=== PATIENT | female | born 1935 | race Caucasian/White ===

== ENCOUNTER 2019-09-03 03:49 | Emergency (ER) | payer OTHER, MEDICARE ==
[2019-09-03] MEDS ORDERED: Adenosine 6 MG/2 ML SDV IVPUSH STA (04:00)
[2019-09-03] MEDS ORDERED: Adenosine 6 MG/2 ML SDV ONE (04:04)
[2019-09-03] MEDS ORDERED: Adenosine 12 MG/4 ML SDV ONE (04:04)
--- NOTE | 2019-09-03 04:49 | EDM.PDOC ---
ED HPI GENERAL MEDICAL PROBLEM - General Chief Complaint: Cardiovascular Problem Stated Complaint: SOB FAST HEART RATE Time Seen by Provider: 09/03/19 03:52 - History of Present Illness INITIAL COMMENTS - FREE TEXT/NARRATIVE: 84-year-old female presents the emergency room with a rapid heart rate some mild shortness of breath. Darted roughly around 2:00 this morning she thought it would get better but it did not so she came in to have this looked at. She is talking in sentences is not complaining of any chest pain but does have palpitations. She has done this in the past. Denies any other complaints at this time. The patient does not have a significant cough has not had any recent illnesses. After cardioversion however she does complain of being a little hungry. Middle Chest Pain Score (Numeric/FACES): 3 - Related Data Allergies Allergy/AdvReac Type Severity Reaction Status Date / Time No Known Allergies Allergy Verified 09/03/19 03:59 Home Meds: Home Meds Acetaminophen 650 mg PO BID 11/16/18 [History] Acetaminophen 650 mg PO Q4H PRN 11/16/18 [History] Albuterol [Ventolin HFA] 2 puff INH Q4H PRN 11/16/18 [History] Aspirin [Ecotrin EC] 81 mg PO DAILY 11/16/18 [History] Calcium Carbonate [Calcium] 500 mg PO Q6H PRN 11/16/18 [History] Calcium Carbonate/Vitamin D3 [Calcium 600-Vit D3 400 Tablet] 1 tab PO BID [History] Insulin Glargine,Hum.Rec.Anlog [[place] U-100] 43 units SUBCUT BID 12/27 [History] Magnesium Oxide 400 mg PO QID 11/16/18 [History] Pantoprazole Sodium [Protonix] 20 mg PO ACBREAKFAST 11/16/18 [History] Potassium Chloride 10 meq PO BEDTIME 11/16/18 [History] atorvaSTATin [Lipitor] 20 mg PO BEDTIME 11/16/18 [History] lisinopriL [Lisinopril] 5 mg PO DAILY 11/16/18 [History] Allopurinol [Zyloprim] 100 mg PO DAILY 09/03/19 [History] Insulin Lispro [Admelog] 15 unit SUBCUT TID 09/03/19 [History] Loperamide [Imodium] 2 mg PO TID PRN 09/03/19 [History] Nitroglycerin 0.4 mg SL ASDIRECTED PRN 09/03/19 [History] Torsemide 20 mg PO BID 09/03/19 [History] Trolamine Salicylate/Aloe Vera [Aspercreme 10% Cream] 1 applic TOP QID 09/03/19 [History] Past Medical History Cardiovascular History: Reports: Blood Clots/VTE/DVT, Heart Failure, High Cholesterol, Other (See Below) Other Cardiovascular History: artificial aorta Respiratory History: Reports: COPD Gastrointestinal History: Reports: Chronic Constipation, GERD, Hiatal Hernia Genitourinary History: Reports: Chronic Renal Insuffiency, Urinary Incontinence Musculoskeletal History: Reports: Osteoporosis Hematologic History: Reports: Anemia, B12 Deficiency - Past Surgical History HEENT Surgical History: Reports: Cataract Surgery Social & Family History - Tobacco Use Smoking Status *Q: Never Smoker Second Hand Smoke Exposure: No - Caffeine Use Caffeine Use: Reports: None - Recreational Drug Use Recreational Drug Use: No ED ROS GENERAL - Review of Systems Review Of Systems: See Below HEENT: Reports: No Symptoms Respiratory: Reports: Shortness of Breath Cardiovascular: Reports: Lightheadedness, Palpitations. Denies: Chest Pain, Edema, Syncope GI/Abdominal: Reports: No Symptoms : Reports: No Symptoms Musculoskeletal: Reports: Other (Routine aches and pains of been an 84 years old she states) Neurological: Reports: No Symptoms Psychiatric: Reports: No Symptoms ED EXAM, GENERAL - Physical Exam Exam: See Below Exam Limited By: No Limitations General Appearance: Alert, No Apparent Distress, Obese, Other (Patient is doing pretty well on presentation however her pulse rate was in the 150s) Head: Atraumatic, Normocephalic Neck: Normal Inspection, Supple, Non-Tender, Full Range of Motion, Other Respiratory/Chest: No Respiratory Distress (JVD), Lungs Clear, Normal Breath Sounds Cardiovascular: No Edema, No Murmur, No Rub, Tachycardia, Other (After cardioversion she had normal heart sounds) GI/Abdominal: Normal Bowel Sounds, Soft, Non-Tender, Other (Significant obesity) Back Exam: Normal Inspection. No: CVA Tenderness (L), CVA Tenderness (R) Extremities: Normal Inspection, No Pedal Edema Neurological: Alert, Oriented, Normal Cognition EKG INTERPRETATION EKG Date: 09/03/19 Rhythm: Other (Ventricular tachycardia) [place]: Normal ST-T: Other (Mild ST depression in the limb leads and precordial leads) QT: Normal EKG Interpretation Comments: EKG done after cardioversion is probably sinus with a rate of 94 but there is some baseline artifact and it is difficult to be certain also has a single PVC [place] is normal. #3 EKG shows a sinus rhythm fairly normal EKG no evidence of ischemia Course - Vital Signs Last Recorded V/S: Last Vital Signs Temp 36.6 C 09/03/19 03:56 Pulse 76 09/03/19 04:23 Resp 16 09/03/19 04:23 BP 119/47 L 09/03/19 04:23 Pulse Ox 97 09/03/19 04:23 - Orders/Labs/Meds Orders: Active Orders 24 hr Category Date Time Status EKG 12 Lead [EKG Documentation Completion] [RC] STAT Care 09/03/19 04:26 Active EKG 12 Lead [EKG Documentation Completion] [RC] STAT Care 09/03/19 04:26 Active EKG Documentation Completion [RC] STAT Care 09/03/19 04:16 Inactive Chest 1V Frontal [CR] Stat Exams 09/03/19 04:16 Ordered Labs: Laboratory Tests 09/03/19 09/03/19 09/03/19 Range/Units 04:15 04:15 04:15 WBC 12.96 H (3.98-10.04) K/mm3 RBC 3.42 L (3.98-5.22) M/mm3 Hgb 11.1 L (11.2-15.7) gm/dl Hct 36.6 (34.1-44.9) % MCV 107.0 H D (79.4-94.8) fl MCH 32.5 H (25.6-32.2) pg MCHC 30.3 L (32.2-35.5) g/dl RDW Std Deviation 56.8 H (36.4-46.3) fL Plt Count 274 (182-369) K/mm3 MPV 11.5 (9.4-12.3) fl Neut % (Auto) 58.1 (34.0-71.1) % Lymph % (Auto) 29.3 (19.3-51.7) % [place] % (Auto) 7.2 (4.7-12.5) % Eos % (Auto) 4.3 (0.7-5.8) Baso % (Auto) 0.6 (0.1-1.2) % Neut # (Auto) 7.52 H (1.56-6.13) K/mm3 Lymph # (Auto) 3.80 H (1.18-3.74) K/mm3 [place] # (Auto) 0.93 H (0.24-0.36) K/mm3 Eos # (Auto) 0.56 H (0.04-0.36) K/mm3 Baso # (Auto) 0.08 (0.01-0.08) K/mm3 Manual Slide Review Abnormal smear PT 10.1 (9.7-12.0) SECONDS INR < 0.93 APTT 23 (22-31) SECONDS Sodium 141 (136-145) mEq/L Potassium 4.6 (3.5-5.1) mEq/L Chloride 106 (98-107) mEq/L Carbon Dioxide 22 (21-32) mEq/L Anion Gap 17.6 H (5-15) BUN 52 H (7-18) mg/dL Creatinine 2.9 H (0.55-1.02) mg/dL Est Cr Clr Drug Dosing 11.83 mL/min Estimated GFR (MDRD) 16 (>60) mL/min BUN/Creatinine Ratio 17.9 (14-18) Glucose 184 H (83-115) mg/dL Calcium 8.4 L (8.5-10.1) mg/dL Total Bilirubin 0.2 (0.2-1.0) mg/dL AST 13 L (15-37) U/L ALT 18 (14-59) U/L Alkaline Phosphatase 91 (46-116) U/L Troponin I 0.031 (0.00-0.056) ng/mL Total Protein 6.9 (6.4-8.2) g/dl Albumin 3.1 L (3.4-5.0) g/dl Globulin 3.8 gm/dL Albumin/Globulin Ratio 0.8 L (1-2) Meds: Medications Discontinued Medications Generic Name Dose Route Start Last Admin Trade Name Freq PRN Reason Stop Dose Admin Adenosine Confirm 09/03/19 04:04 09/03/19 04:23 Adenocard Administered 09/03/19 04:05 Not Given Dose 6 mg .ROUTE .STK-MED ONE Adenosine Confirm 09/03/19 04:04 09/03/19 04:23 Adenocard Administered 09/03/19 04:05 Not Given Dose 12 mg .ROUTE .STK-MED ONE Adenosine 6 mg 09/03/19 04:00 09/03/19 04:06 Adenocard IVPUSH 09/03/19 04:01 6 mg NOW STA Administration - Re-Assessments/Exams Free Text/Narrative Re-Assessment/Exam: 09/03/19 04:52 Patient was placed in emergency room suite, IV access obtained labs obtained EKG obtained EKG consistent with SVT rate of 150. She was administered 6 mg of adenosine and converted to sinus this started in the 80s went back up into the low 100s and settled back down into the 70s. The patient felt better with a little shortness of breath she had had resolved. The patient was a little uncomfortable during the adenosine cardioversion. However this was short-lived. 09/03/19 05:38 Chest x-ray shows some age-related changes evidence of coronary revascularization and aortic stent. Labs troponin is in the normal range. I am concerned about her renal function patient states that her creatinine at 2.9 is lower than it was last time they checked it. She sees her photo producer on a regular basis and is scheduled to see the photo producer on 24 September. Did inform her that when she was last here in November of this last year her creatinine was 1.9. Patient is continued to do well and she is requesting to go home at this time. Departure - Departure Time of Disposition: 05:40 Disposition: Home, Self-Care 01 Clinical Impression: Supraventricular tachycardia, Renal insufficiency Referrals: Walter Sahu MD [Primary Care Provider] - Forms: ED Department Discharge Additional Instructions: Return to the emergency room with any questions problems or worsening symptoms. Follow-up with your photo producer, or kidney doctor, as scheduled. Follow-up with your heart doctor to discuss this rapid heart rate Sepsis Event Note - Evaluation Sepsis Screening Result: No Definite Risk - Focused Exam Vital Signs: Vital Signs Temp Pulse Resp BP Pulse Ox 09/03/19 04:23 76 16 119/47 L 97 09/03/19 03:56 36.6 C 153 H 20 93/69 96 Date Exam was Performed: 09/03/19 Time Exam was Performed: 05:38 - My Orders Last 24 Hours: My Active Orders 09/03/19 04:16 EKG Documentation Completion [RC] STAT Chest 1V Frontal [CR] Stat 09/03/19 04:26 EKG 12 Lead [EKG Documentation Completion] [RC] STAT EKG 12 Lead [EKG Documentation Completion] [RC] STAT - Assessment/Plan Last 24 Hours: My Active Orders 09/03/19 04:16 EKG Documentation Completion [RC] STAT Chest 1V Frontal [CR] Stat 09/03/19 04:26 EKG 12 Lead [EKG Documentation Completion] [RC] STAT EKG 12 Lead [EKG Documentation Completion] [RC] STAT
--- NOTE | 2019-09-03 07:22 | CR ---
Chest: Portable view of the chest was obtained. Comparison: Prior chest x-ray of 11/16/18. Aortic stent is noted. Heart size and mediastinum are within normal limits for age. Lungs are clear with no acute parenchymal change. Bony structures are unremarkable. Impression: 1. Nothing acute is appreciated. Diagnostic code #2 This report was dictated in MDT
== END 2019-09-03 06:10 | disposition home or self-care (01) ==
LOC: JD.ED 03:49
DX: I47.1 Supraventricular tachycardia (principal); N28.9 Disorder of kidney and ureter, unspecified; I50.9 Heart failure, unspecified; E78.00 Pure hypercholesterolemia, unspecified; J44.9 Chronic obstructive pulmonary disease, unspecified; K21.9 Gastro-esophageal reflux disease without esophagitis; Z79.82 Long term (current) use of aspirin; Z79.899 Other long term (current) drug therapy; Z79.4 Long term (current) use of insulin
CPT/HCPCS: 36415; 71045; 80053; 84484; 85025; 85610; 85730; 93005; 96374; 99285; J0153

== ENCOUNTER 2020-04-27 17:28 | Emergency (ER) | payer MEDICARE, OTHER ==
[2020-04-27] MEDS ORDERED: Sodium Chloride 0.9% 10 ML Syringe FLUSH PRN (17:38)
--- NOTE | 2020-04-27 18:08 | EDM.PDOC ---
ED HPI GENERAL MEDICAL PROBLEM - General Chief Complaint: Cardiovascular Problem Stated Complaint: [facility] Time Seen by Provider: 04/27/20 17:32 Source of Information: Reports: Patient, RN Notes Reviewed History Limitations: Reports: No Limitations - History of Present Illness INITIAL COMMENTS - FREE TEXT/NARRATIVE: Patient is an 85-year-old female presenting to the emergency department after having an episode of dizziness, weakness, and palpitations at home. She states that she was dicing potatoes, and when she stood up the symptoms began. She describes a sensation of her heart racing accompanied by dizziness and weakness. She does have a history of SVT and states this felt similar to her previous episodes. She estimates the symptoms lasted approximately 1 hour. The DIRECTOR OF AGRONOMY called the [facility] nurse who came to evaluate the patient and called the ambulance. The episode resolved shortly after the ambulance arrived. She states that she occasionally feels some palpitations now and does not feel quite right but denies any dizziness or weakness. She has had no fever, chills, nausea, or vomiting. She does have chronic diarrhea. Denies any chest pain now or at the time of the episode but states at the time of the episode, she did feel short of breath. She denies shortness of breath at this time. - Related Data Allergies Allergy/AdvReac Type Severity Reaction Status Date / Time No Known Allergies Allergy Verified 04/27/20 17:36 Home Meds: Home Meds Acetaminophen 650 mg PO BID 11/16/18 [History] Acetaminophen 650 mg PO Q4H PRN 11/16/18 [History] Albuterol [Ventolin HFA] 2 puff INH Q4H PRN 11/16/18 [History] Aspirin [Ecotrin EC] 81 mg PO DAILY 11/16/18 [History] Calcium Carbonate [Calcium] 500 - 1,000 mg PO Q6H PRN 11/16/18 [History] Calcium Carbonate/Vitamin D3 [Calcium 600-Vit D3 400 Tablet] 1 tab PO BID 11/16/18 [History] Insulin Glargine,Hum.Rec.Anlog [Basaglar Kwikpen U-100] 25 units SUBCUT BID 11/16/18 [History] Magnesium Oxide 400 mg PO TID 11/16/18 [History] Pantoprazole Sodium [Protonix] 20 mg PO Q48H 11/16/18 [History] atorvaSTATin [Lipitor] 20 mg PO BEDTIME 11/16/18 [History] lisinopriL [Lisinopril] 5 mg PO DAILY 11/16/18 [History] Allopurinol [Zyloprim] 100 mg PO DAILY 09/03/19 [History] Insulin Lispro [Admelog] 10 unit SUBCUT TID 09/03/19 [History] Loperamide [Imodium] 2 mg PO TID PRN 09/03/19 [History] Nitroglycerin 0.4 mg SL ASDIRECTED PRN 09/03/19 [History] Torsemide 40 mg PO DAILY 09/03/19 [History] Trolamine Salicylate/Aloe Vera [Aspercreme 10% Cream] 1 applic TOP QID PRN 09/03/19 [History] Iodine/Isopropyl Alcohol [Iodine Tincture 1%-70% [place]] 1 applic TOP QID PRN 04/27/20 [History] Latanoprost 1 drop EYEBOTH BEDTIME 04/27/20 [History] Metoprolol Succinate 50 mg PO DAILY 04/27/20 [History] Montelukast [Singulair] 10 mg PO BEDTIME PRN 04/27/20 [History] Ondansetron [Zofran ODT] 4 mg SL Q6H PRN 04/27/20 [History] Semaglutide [Ozempic] 1 injection SUBCUT WEEKLY 04/27/20 [History] Torsemide 20 mg PO DAILY PRN 04/27/20 [History] Vit A/Vit C/Vit E/Zinc/Copper [Preservision] 1 tab PO BID 04/27/20 [History] calcitrioL [Calcitriol] 2 tab PO MOFR 04/27/20 [History] Past Medical History Cardiovascular History: Reports: Blood Clots/VTE/DVT, Heart Failure, High Cholesterol, Other (See Below) Other Cardiovascular History: artificial aorta Respiratory History: Reports: COPD Gastrointestinal History: Reports: Chronic Constipation, GERD, Hiatal Hernia Genitourinary History: Reports: Chronic Renal Insuffiency, Urinary Incontinence Musculoskeletal History: Reports: Osteoporosis Hematologic History: Reports: Anemia, B12 Deficiency - Past Surgical History HEENT Surgical History: Reports: Cataract Surgery Social & Family History - Tobacco Use Tobacco Use Status *Q: Former Tobacco User Used Tobacco, but Quit: Yes Month/Year Tobacco Last Used: 3 years - Caffeine Use Caffeine Use: Reports: None - Recreational Drug Use Recreational Drug Use: No ED ROS GENERAL - Review of Systems Review Of Systems: See Below Constitutional: Reports: No Symptoms. Denies: Fever, Chills HEENT: Reports: No Symptoms Respiratory: Reports: Shortness of Breath. Denies: Cough Cardiovascular: Reports: Lightheadedness, Palpitations. Denies: Chest Pain Endocrine: Reports: Fatigue GI/Abdominal: Reports: Diarrhea. Denies: Abdominal Pain, Nausea, Vomiting : Reports: No Symptoms. Denies: Dysuria Musculoskeletal: Reports: No Symptoms Skin: Reports: No Symptoms Neurological: Reports: No Symptoms Psychiatric: Reports: No Symptoms Hematologic/Lymphatic: Reports: No Symptoms Immunologic: Reports: No Symptoms ED EXAM, GENERAL - Physical Exam Exam: See Below Exam Limited By: No Limitations General Appearance: Alert, WD/WN, No Apparent Distress Respiratory/Chest: No Respiratory Distress, Lungs Clear, Normal Breath Sounds, No Accessory Muscle Use, Chest Non-Tender Cardiovascular: Normal Peripheral Pulses, Regular Rate, Rhythm, No Edema, No Gallop, No JVD, No Murmur, No Rub GI/Abdominal: Normal Bowel Sounds, Soft, Non-Tender, No Organomegaly, No Distention, No Abnormal Bruit, No Mass Neurological: Alert, Oriented, CN II-XII Intact, Normal Cognition, Normal Gait, Normal Reflexes, No Motor/Sensory Deficits Psychiatric: Normal Affect, Normal Mood Skin Exam: Warm, Dry, Intact, Normal Color, No Rash Course - Vital Signs Last Recorded V/S: Last Vital Signs Temp 97.6 F 04/27/20 17:34 Pulse 73 04/27/20 17:34 Resp 18 04/27/20 17:34 BP 119/53 L 04/27/20 17:34 Pulse Ox 100 04/27/20 17:34 Orthostatic Blood Pressure [ 92/52 Standing] Orthostatic Blood Pressure [ 113/57 Sitting] Orthostatic Blood Pressure [ 93/51 Supine] - Orders/Labs/Meds Orders: Active Orders 24 hr Category Date Time Status EKG Documentation Completion [RC] STAT Care 04/27/20 17:38 Active Holter Monitor 48 Hours [RC] .PRN Care 04/27/20 19:31 Active Orthostatic Vital Signs [RC] ASDIRECTED Care 04/27/20 17:38 Active Peripheral IV Care [RC] . DIRECTED Care 04/27/20 17:39 Active Chest 1V Frontal [CR] Stat Exams 04/27/20 17:55 Taken Sodium Chloride 0.9% [Saline Flush] Med 04/27/20 17:38 Active 10 ml FLUSH ASDIRECTED PRN Peripheral IV Insertion Adult [OM.PC] Stat Oth 04/27/20 17:38 Ordered Medication Orders Sodium Chloride (Saline Flush) 10 ml FLUSH ASDIRECTED PRN PRN Reason: Keep Vein Open Last Admin: 04/27/20 18:11 Dose: 10 ml Documented by: RASHMI Labs: Laboratory Tests 04/27/20 04/27/20 04/27/20 Range/Units 17:50 17:50 17:50 WBC 11.61 H (3.98-10.04) K/mm3 RBC 3.63 L (3.98-5.22) M/mm3 Hgb 11.5 (11.2-15.7) gm/dl Hct 37.5 (34.1-44.9) % MCV 103.3 H D (79.4-94.8) fl MCH 31.7 (25.6-32.2) pg MCHC 30.7 L (32.2-35.5) g/dl RDW Std Deviation 57.9 H (36.4-46.3) fL Plt Count 289 (182-369) K/mm3 MPV 10.6 (9.4-12.3) fl Neut % (Auto) 64.9 (34.0-71.1) % Lymph % (Auto) 23.6 (19.3-51.7) % [place] % (Auto) 7.7 (4.7-12.5) % Eos % (Auto) 2.7 (0.7-5.8) Baso % (Auto) 0.5 (0.1-1.2) % Neut # (Auto) 7.54 H (1.56-6.13) K/mm3 Lymph # (Auto) 2.74 (1.18-3.74) K/mm3 [place] # (Auto) 0.89 H (0.24-0.36) K/mm3 Eos # (Auto) 0.31 (0.04-0.36) K/mm3 Baso # (Auto) 0.06 (0.01-0.08) K/mm3 Manual Slide Review Abnormal smear Sodium 145 (136-145) mEq/L Potassium 4.2 (3.5-5.1) mEq/L Chloride 106 (98-107) mEq/L Carbon Dioxide 27 (21-32) mEq/L Anion Gap 16.2 H (5-15) BUN 36 H (7-18) mg/dL Creatinine 2.1 H (0.55-1.02) mg/dL Est Cr Clr Drug Dosing 16.05 mL/min Estimated GFR (MDRD) 22 (>60) mL/min BUN/Creatinine Ratio 17.1 (14-18) Glucose 162 H (83-115) mg/dL Calcium 9.6 (8.5-10.1) mg/dL Magnesium (1.8-2.4) mg/dl Total Bilirubin 0.4 (0.2-1.0) mg/dL AST 14 L (15-37) U/L ALT 16 (14-59) U/L Alkaline Phosphatase 93 (46-116) U/L Troponin I 0.056 (0.00-0.056) ng/mL NT-Pro-B Natriuret Pep 864 H (0-450) pg/mL Total Protein 7.1 (6.4-8.2) g/dl Albumin 3.2 L (3.4-5.0) g/dl Globulin 3.9 gm/dL Albumin/Globulin Ratio 0.8 L (1-2) TSH 3rd Generation (0.358-3.74) uIU/mL Urine Color (Yellow) Urine Appearance (Clear) Urine pH (5.0-8.0) Ur Specific [place] (1.005-1.030) Urine Protein (Negative) Urine Glucose (UA) (Negative) Urine Ketones (Negative) Urine Occult Blood (Negative) Urine Nitrite (Negative) Urine Bilirubin (Negative) Urine Urobilinogen (0.2-1.0) Ur Leukocyte Esterase (Negative) Urine RBC (0-5) /hpf Urine WBC (0-5) /hpf Ur Squamous Epith Cells (0-5) /hpf Urine Bacteria (FEW) /hpf Urine Mucus (FEW) /hpf 04/27/20 04/27/20 04/27/20 Range/Units 17:50 17:50 18:40 WBC (3.98-10.04) K/mm3 RBC (3.98-5.22) M/mm3 Hgb (11.2-15.7) gm/dl Hct (34.1-44.9) % MCV (79.4-94.8) fl MCH (25.6-32.2) pg MCHC (32.2-35.5) g/dl RDW Std Deviation (36.4-46.3) fL Plt Count (182-369) K/mm3 MPV (9.4-12.3) fl Neut % (Auto) (34.0-71.1) % Lymph % (Auto) (19.3-51.7) % [place] % (Auto) (4.7-12.5) % Eos % (Auto) (0.7-5.8) Baso % (Auto) (0.1-1.2) % Neut # (Auto) (1.56-6.13) K/mm3 Lymph # (Auto) (1.18-3.74) K/mm3 [place] # (Auto) (0.24-0.36) K/mm3 Eos # (Auto) (0.04-0.36) K/mm3 Baso # (Auto) (0.01-0.08) K/mm3 Manual Slide Review Sodium (136-145) mEq/L Potassium (3.5-5.1) mEq/L Chloride (98-107) mEq/L Carbon Dioxide (21-32) mEq/L Anion Gap (5-15) BUN (7-18) mg/dL Creatinine (0.55-1.02) mg/dL Est Cr Clr Drug Dosing mL/min Estimated GFR (MDRD) (>60) mL/min BUN/Creatinine Ratio (14-18) Glucose (83-115) mg/dL Calcium (8.5-10.1) mg/dL Magnesium 2.0 (1.8-2.4) mg/dl Total Bilirubin (0.2-1.0) mg/dL AST (15-37) U/L ALT (14-59) U/L Alkaline Phosphatase (46-116) U/L Troponin I (0.00-0.056) ng/mL NT-Pro-B Natriuret Pep (0-450) pg/mL Total Protein (6.4-8.2) g/dl Albumin (3.4-5.0) g/dl Globulin gm/dL Albumin/Globulin Ratio (1-2) TSH 3rd Generation 2.379 (0.358-3.74) uIU/mL Urine Color Yellow (Yellow) Urine Appearance Clear (Clear) Urine pH 6.5 (5.0-8.0) Ur Specific [place] 1.020 (1.005-1.030) Urine Protein 1+ H (Negative) Urine Glucose (UA) Negative (Negative) Urine Ketones Negative (Negative) Urine Occult Blood Negative (Negative) Urine Nitrite Negative (Negative) Urine Bilirubin Negative (Negative) Urine Urobilinogen 0.2 (0.2-1.0) Ur Leukocyte Esterase Negative (Negative) Urine RBC Not seen (0-5) /hpf Urine WBC 0-5 (0-5) /hpf Ur Squamous Epith Cells 30-40 H (0-5) /hpf Urine Bacteria Few (FEW) /hpf Urine Mucus Not seen (FEW) /hpf Meds: Medications Generic Name Dose Route Start Last Admin Trade Name Freq PRN Reason Stop Dose Admin Sodium Chloride 10 ml 04/27/20 17:38 04/27/20 18:11 Saline Flush FLUSH 10 ml ASDIRECTED PRN Administration Keep Vein Open Discontinued Medications Generic Name Dose Route Start Last Admin Trade Name Freq PRN Reason Stop Dose Admin Sodium Chloride 500 mls @ 999 mls/hr 04/27/20 18:52 04/27/20 18:59 Normal Saline IV 04/27/20 19:22 999 mls/hr NOW STA Administration - Re-Assessments/Exams Free Text/Narrative Re-Assessment/Exam: 04/27/20 18:48 Phone call recieved from [facility] nurse. She states that at the time of the episode, patient's heart rate was going in the 170s. His further supports the suspicion that she had a run of SVT. Patient was able to get up and use the bathroom without difficulty. Awaiting results of hematology. Orthostatic vital signs were completed and she was not found to be mildly orthostatic. Increased from 67 supine to 87 standing. Blood pressure remained stable at 93/51 supine and 92/52 standing. BNP is minimally elevated at 864. Chest x-ray is overall normal. Have ordered a 500 mill bolus of normal saline to be given. 04/27/20 19:00 Hematology was significant for a WBC minimally elevated 11.61, anion gap 16.2, BUN 36, creatinine 2.1, proBNP 864. Troponin the high end of normal at 0.056. Discussed this with Dr. Clark. Given her lack of chest pain and episode of likely SVT, this not concerning. Urinalysis was negative for infection. TSH is normal. I will reassess patient after the 500 mill bolus of normal saline has infused. 04/27/20 19:38 Pts blood pressure has increased to 122/51 after the 500 mill bolus. She has had no recurrence of SVT or palpitations. Have ordered for a 48-hour Holter monitor. Discussed return precautions. Discharge instructions as documented. Departure - Departure Time of Disposition: 19:39 Disposition: Home, Self-Care 01 Condition: Good Clinical Impression: Palpitations, Dizziness Instructions: Palpitations, Dizziness, [id number] Referrals: Rick Ramirez MD [Ordering Only Provider] - Forms: ED Department Discharge Additional Instructions: You were seen in the emergency department today for an episode of rapid heart rate, palpitations, dizziness, and weakness. Work-up included blood work, an EKG, chest x-ray, and urinalysis. The results of your work-up were found to be overall normal with the exception of your kidney function being decreased which is your baseline. Based on your description and the report from the nurse, it is likely that you experienced a recurrence of SVT, however it resolved on its own. You have been sent home on a 48-hour Holter monitor. Follow the instructions as given by the respiratory therapist. If you should experience any recurrence of symptoms or any other symptoms such as chest pain or shortness of breath, return to the emergency department. Recommend follow-up with your court orderly or primary care provider in approximately 1 week. Sepsis Event Note (ED) - Evaluation Sepsis Screening Result: No Definite Risk - Focused Exam Vital Signs: Vital Signs Temp Pulse Resp BP Pulse Ox 04/27/20 17:34 97.6 F 73 18 119/53 L 100 - My Orders Last 24 Hours: My Active Orders 04/27/20 17:38 EKG Documentation Completion [RC] STAT Orthostatic Vital Signs [RC] ASDIRECTED Sodium Chloride 0.9% [Saline Flush] 10 ml FLUSH ASDIRECTED PRN Peripheral IV Insertion Adult [OM.PC] Stat 04/27/20 17:39 Peripheral IV Care [RC] . DIRECTED 04/27/20 17:55 Chest 1V Frontal [CR] Stat 04/27/20 19:31 Holter Monitor 48 Hours [RC] .PRN - Assessment/Plan Last 24 Hours: My Active Orders 04/27/20 17:38 EKG Documentation Completion [RC] STAT Orthostatic Vital Signs [RC] ASDIRECTED Sodium Chloride 0.9% [Saline Flush] 10 ml FLUSH ASDIRECTED PRN Peripheral IV Insertion Adult [OM.PC] Stat 04/27/20 17:39 Peripheral IV Care [RC] . DIRECTED 04/27/20 17:55 Chest 1V Frontal [CR] Stat 04/27/20 19:31 Holter Monitor 48 Hours [RC] .PRN
[2020-04-27] MEDS ORDERED: Sodium Chloride 0.9% 500 ML IV STA (18:52)
--- NOTE | 2020-04-28 08:24 | CR ---
Chest: Portable view of the chest was obtained. Comparison: Prior chest x-ray 09/03/19. Heart size and mediastinum are normal. Aortic stent is noted. Lungs are clear with no acute parenchymal change. No gross bony abnormality is appreciated. Impression: 1. Findings as noted above. 2. Nothing acute is appreciated. Diagnostic code #2
== END 2020-04-27 20:32 | disposition home or self-care (01) ==
LOC: JD.ED 17:28
DX: R42 Dizziness and giddiness (principal); R00.2 Palpitations; R53.1 Weakness; I13.0 Hypertensive heart and chronic kidney disease with heart failure and stage 1 through stage 4 chronic kidney disease, or unspecified chronic kidney disease; I50.9 Heart failure, unspecified; N18.9 Chronic kidney disease, unspecified; J44.9 Chronic obstructive pulmonary disease, unspecified; E78.00 Pure hypercholesterolemia, unspecified; K21.9 Gastro-esophageal reflux disease without esophagitis; Z72.0 Tobacco use; Z79.82 Long term (current) use of aspirin; Z79.899 Other long term (current) drug therapy
CPT/HCPCS: 36415; 71045; 80053; 81001; 83735; 83880; 84443; 84484; 85025; 93005; 93225; 93226; 99285; J7030; 93010; 99284

== ENCOUNTER 2020-05-02 02:36 | Inpatient (IN) | payer MEDICARE, OTHER ==
--- NOTE | 2020-05-02 02:49 | EDM.PDOC ---
ED HPI GENERAL MEDICAL PROBLEM - General Chief Complaint: Chest Pain Stated Complaint: [facility] Time Seen by Provider: 05/02/20 02:44 Source of Information: Reports: Patient History Limitations: Reports: No Limitations - History of Present Illness INITIAL COMMENTS - FREE TEXT/NARRATIVE: This is an 85-year-old female. This morning she developed some sharp pain in her left chest area underneath her left breast that radiated around into her scapula. She called the pace nurse who when she arrived noted to pulse of 150 and gave her a single nitroglycerin that seemed to stop the pain. The ambulance was called and they went and picked her up. When she arrives to the ER she does not appear to be in distress. She does state that when the pain occurred he was very sharp and it seemed to make her short of breath but she was not sweating. The pain did not go into her jaw or down her left arm. She does have a history of an artificial aortic valve as well as 1 stent. She is an insulin-dependent diabetic with neuropathy and retinopathy and also chronic kidney disease. She also has a history of esophageal reflux. She states she feels okay. She did just have a Holter monitor taken off last Monday because she has been having episodes of a fast rate and then a slow rate. She does not have the results of the Holter monitor yet. - Related Data Allergies Allergy/AdvReac Type Severity Reaction Status Date / Time No Known Allergies Allergy Verified 04/27/20 17:36 Home Meds: Home Meds Acetaminophen 650 mg PO BID 11/16/18 [History] Acetaminophen 650 mg PO Q4H PRN 11/16/18 [History] Albuterol [Ventolin HFA] 2 puff INH Q4H PRN 11/16/18 [History] Aspirin [Ecotrin EC] 81 mg PO DAILY 11/16/18 [History] Calcium Carbonate [Calcium] 500 - 1,000 mg PO Q6H PRN 11/16/18 [History] Calcium Carbonate/Vitamin D3 [Calcium 600-Vit D3 400 Tablet] 1 tab PO BID 11/16/18 [History] Insulin Glargine,Hum.Rec.Anlog [Basaglar Kwikpen U-100] 25 units SUBCUT BID 11/16/18 [History] Magnesium Oxide 400 mg PO TID 11/16/18 [History] Pantoprazole Sodium [Protonix] 20 mg PO Q48H 11/16/18 [History] atorvaSTATin [Lipitor] 20 mg PO BEDTIME 11/16/18 [History] lisinopriL [Lisinopril] 5 mg PO DAILY 11/16/18 [History] Allopurinol [Zyloprim] 100 mg PO DAILY 09/03/19 [History] Insulin Lispro [Admelog] 10 unit SUBCUT TID 09/03/19 [History] Loperamide [Imodium] 2 mg PO TID PRN 09/03/19 [History] Nitroglycerin 0.4 mg SL ASDIRECTED PRN 09/03/19 [History] Torsemide 40 mg PO DAILY 09/03/19 [History] Trolamine Salicylate/Aloe Vera [Aspercreme 10% Cream] 1 applic TOP QID PRN 09/03/19 [History] Iodine/Isopropyl Alcohol [Iodine Tincture 1%-70% Amber] 1 applic TOP QID PRN 04/27/20 [History] Latanoprost 1 drop EYEBOTH BEDTIME 04/27/20 [History] Metoprolol Succinate 50 mg PO DAILY 04/27/20 [History] Montelukast [Singulair] 10 mg PO BEDTIME PRN 04/27/20 [History] Ondansetron [Zofran ODT] 4 mg SL Q6H PRN 04/27/20 [History] Semaglutide [Ozempic] 1 injection SUBCUT WEEKLY 04/27/20 [History] Torsemide 20 mg PO DAILY PRN 04/27/20 [History] Vit A/Vit C/Vit E/Zinc/Copper [Preservision] 1 tab PO BID 04/27/20 [History] calcitrioL [Calcitriol] 2 tab PO MOFR 04/27/20 [History] Past Medical History Cardiovascular History: Reports: Blood Clots/VTE/DVT, Heart Failure, High Cholesterol, Other (See Below) Other Cardiovascular History: artificial aorta Respiratory History: Reports: COPD Gastrointestinal History: Reports: Chronic Constipation, GERD, Hiatal Hernia Genitourinary History: Reports: Chronic Renal Insuffiency, Urinary Incontinence Musculoskeletal History: Reports: Osteoporosis Hematologic History: Reports: Anemia, B12 Deficiency - Past Surgical History HEENT Surgical History: Reports: Cataract Surgery Social & Family History - Caffeine Use Caffeine Use: Reports: None ED ROS GENERAL - Review of Systems Review Of Systems: See Below Constitutional: Denies: Fever, Chills HEENT: Reports: Other (Patient states she is legally blind) Respiratory: Denies: Shortness of Breath, Cough Cardiovascular: Reports: Chest Pain Endocrine: Reports: No Symptoms GI/Abdominal: Denies: Abdominal Pain, Nausea, Vomiting : Reports: No Symptoms Musculoskeletal: Reports: Other (Generalized arthralgia) Skin: Reports: No Symptoms Neurological: Reports: No Symptoms Psychiatric: Reports: No Symptoms ED EXAM, GENERAL - Physical Exam Exam: See Below Free Text/Narrative:: The patient is very talkative and she has no complaints of pain at this time. Exam Limited By: No Limitations General Appearance: Alert, WD/WN, No Apparent Distress Eye Exam: Bilateral Eye: Normal Inspection (Patient states she is legally blind) Ears: Normal External Exam Nose: Normal Inspection Throat/Mouth: Normal Inspection, Normal Lips, Normal Voice, No Airway Compromise Head: Normocephalic Neck: Supple Respiratory/Chest: No Respiratory Distress, Lungs Clear, Normal Breath Sounds Cardiovascular: Regular Rate, Rhythm, No Murmur, Other (I do not hear any aortic valve noise) GI/Abdominal: Soft, Non-Tender Back Exam: Decreased Range of Motion Extremities: Normal Inspection, Normal Range of Motion, Other (Trace lower extremity swelling) Neurological: Alert, Oriented, Other (Legally blind, has lower extremity peripheral neuropathy) Psychiatric: Normal Affect, Normal Mood Skin Exam: Warm, Dry #1 Interpretation EKG Date: 05/02/20 Time: 02:40 EKG Interpretation Comments: EKG shows a normal sinus rhythm rate of 75. There is evidence of an old anterior septal MT. There is no acute ST or T wave changes or ST elevation. Th ere is no obvious ischemia noted. #2 Interpretation EKG Date: 05/02/20 Time: 06:15 EKG Interpretation Comments: Second EKG shows a normal sinus rhythm rate of 66 with 1 PVC. An old anterior septal MT is noted but no acute ST or T wave changes no ischemia noted there is no significant change from previous EKG from this morning. Course - Vital Signs Last Recorded V/S: Last Vital Signs Temp 98.1 F 05/02/20 02:44 Pulse 65 05/02/20 02:44 Resp 16 05/02/20 02:44 BP 111/50 L 05/02/20 02:44 Pulse Ox 98 05/02/20 02:44 - Orders/Labs/Meds Orders: Active Orders 24 hr Category Date Time Status EKG Documentation Completion [RC] ASDIRECTED Care 05/02/20 02:43 Active EKG 12 Lead [EK] Stat Ther 05/02/20 02:42 Ordered Labs: Laboratory Tests 05/02/20 05/02/20 05/02/20 Range/Units 02:40 02:40 04:55 WBC 13.22 H (3.98-10.04) K/mm3 RBC 3.73 L (3.98-5.22) M/mm3 Hgb 11.9 (11.2-15.7) gm/dl Hct 38.4 (34.1-44.9) % MCV 102.9 H (79.4-94.8) fl MCH 31.9 (25.6-32.2) pg MCHC 31.0 L (32.2-35.5) g/dl RDW Std Deviation 59.0 H (36.4-46.3) fL Plt Count 322 (182-369) K/mm3 MPV 11.6 (9.4-12.3) fl Neut % (Auto) 66.1 (34.0-71.1) % Lymph % (Auto) 22.8 (19.3-51.7) % Love % (Auto) 6.7 (4.7-12.5) % Eos % (Auto) 3.2 (0.7-5.8) Baso % (Auto) 0.7 (0.1-1.2) % Neut # (Auto) 8.75 H (1.56-6.13) K/mm3 Lymph # (Auto) 3.01 (1.18-3.74) K/mm3 Love # (Auto) 0.88 H (0.24-0.36) K/mm3 Eos # (Auto) 0.42 H (0.04-0.36) K/mm3 Baso # (Auto) 0.09 H (0.01-0.08) K/mm3 Sodium 144 (136-145) mEq/L Potassium 4.1 (3.5-5.1) mEq/L Chloride 104 (98-107) mEq/L Carbon Dioxide 26 (21-32) mEq/L Anion Gap 18.1 H (5-15) BUN 33 H (7-18) mg/dL Creatinine 2.2 H (0.55-1.02) mg/dL Est Cr Clr Drug Dosing TNP Estimated GFR (MDRD) 21 (>60) mL/min BUN/Creatinine Ratio 15.0 (14-18) Glucose 161 H (83-115) mg/dL Calcium 9.3 (8.5-10.1) mg/dL Total Bilirubin 0.5 (0.2-1.0) mg/dL AST 14 L (15-37) U/L ALT 15 (14-59) U/L Alkaline Phosphatase 87 (46-116) U/L Troponin I 0.044 0.101 H* (0.00-0.056) ng/mL Total Protein 7.2 (6.4-8.2) g/dl Albumin 3.3 L (3.4-5.0) g/dl Globulin 3.9 gm/dL Albumin/Globulin Ratio 0.9 L (1-2) - Re-Assessments/Exams Free Text/Narrative Re-Assessment/Exam: 05/02/20 06:[address] Charles the metal or wood blocker on-call for Dr. Ramirez who is the patient's metal or wood blocker. He feels that she has had a non-STEMI as do I but if the family is not going to pursue a work-up at this time then she does not need to come to [place]. I therefore spoke to Magan who is her grandson and has POA and he is interested in having her stay here and monitored until the troponins come back normal and if there is any problems they will decide at that point in time whether they want to be aggressive or not. The patient is a modified DNR where she is intubated and medications but no chest compressions. 05/02/20 06:38 According to Magan the POA she has had several episodes of supraventricular tachycardia and chest pain over this last week or week and a half and the family would feel more comfortable having her here and monitored until her troponins are back to normal. They are also interested in knowing if the 48-hour Holter monitor report has come back to see if that might give a clue as to what is going on with her heart as well. 05/02/20 06:[address] Antunez. He is willing to put her in the hospital to monitor her. He understands that this is the family's wishes. If she appears to have some problems they will determine at that point in time how aggressive they want to be in working her up and if need be she can always be transferred to [place] if they wish it to be that way. I went over again her DNR status and what she wants is no chest compressions but she does want intubation and medications if something were to happen. Departure - Departure Time of Disposition: 06:49 Disposition: Admitted As Inpatient 68 Condition: Poor Clinical Impression: Non-STEMI (non-ST elevated myocardial infarction), Insulin dependent diabetes mellitus, Ischemic heart disease, Chronic renal insufficiency, stage IV (severe), Paroxysmal supraventricular tachycardia Sepsis Event Note (ED) - Focused Exam Vital Signs: Vital Signs Temp Pulse Resp BP Pulse Ox 05/02/20 02:44 98.1 F 65 16 111/50 L 98 ED Communication - ED Communication Date/Time Date: 05/02/20 Time Called: 06:44 - Discussed Case With (1) Discussed Case With (1): Admitting Provider Person/s Notified (1): Deandra Donahue III (He will admit her for further evaluation and treatment.) - My Orders Last 24 Hours: My Active Orders 05/02/20 02:42 EKG 12 Lead [EK] Stat 05/02/20 02:43 EKG Documentation Completion [RC] ASDIRECTED - Assessment/Plan Last 24 Hours: My Active Orders 05/02/20 02:42 EKG 12 Lead [EK] Stat 05/02/20 02:43 EKG Documentation Completion [RC] ASDIRECTED
[2020-05-02] MEDS ORDERED: Nitroglycerin 0.4 MG Tab.SL SL PRN ×2 (11:21→11:47)
[2020-05-02] MEDS ORDERED: Ondansetron 4 MG/2 ML SDV IV PRN (11:44)
[2020-05-02] MEDS ORDERED: Acetaminophen 325 MG Tab PO PRN (11:44)
[2020-05-02] MEDS ORDERED: Montelukast 10 MG Tab PO PRN (11:47)
[2020-05-02] MEDS ORDERED: Albuterol 6.7 GM Inhaler INH PRN (11:47)
--- NOTE | 2020-05-02 11:55 | PCM.HP.2 ---
H&P History of Present Illness - General Date of Service: 05/02/20 Admit Problem/Dx: Admission Diagnosis/Problem Admission Diagnosis/Problem Non-ST elevation (NSTEMI) myocardial infarction - History of Present Illness Initial Comments - Free Text/Narative: 85-year-old female with history of PSVT presented to the emergency department after having an episode of palpitations with shortness of breath and chest pain. Patient described chest pain to be sharp and moderate in severity. It lasted several minutes until she received nitroglycerin. Patient states that she has been wearing a Holter monitor because of recurrent episodes of PSVT and last night developed atypical episode, but she also developed chest pain. Patient tried to wait, but ultimately had to call [facility] nurse who alerted EMS. The [facility] nurse found her to have a heart rate of 150 and she was given a single nitroglycerin which seemed to stop the pain. When she arrived to the emergency department patient was not in distress and her chest pain as well as her tachycardia resolved. Initial EKG showed normal sinus rhythm with ventricular rate of 75 bpm. Evidence of old anterior septal MO. There is no acute ischemia and no acute ST-T wave changes. Troponin at that point time was 0.044, within normal limits. Repeat troponin III hours later did bump up to 0.101, normal 0.05, and second EKG showed no significant changes and again no acute ST or T wave changes. On-call cardiology was consulted and felt that the patient had a NSTEMI but did not need to have work-up since it seems to have been rate related. Also, it was determined that she did not need anticoagulation. At this point it was felt we could safely monitor her here in our hospital, but if things worsened or she developed a STEMI would reevaluate her for transfer. She states she does not want to be resuscitated but does want to be intubated. - Related Data Allergies/Adverse Reactions: Allergies Allergy/AdvReac Type Severity Reaction Status Date / Time No Known Allergies Allergy Verified 05/02/20 12:47 Home Medications: Home Meds Acetaminophen 325 mg PO BID 11/16/18 [History] Acetaminophen 650 mg PO Q4H PRN 11/16/18 [History] Albuterol [Ventolin HFA] 2 puff INH Q4H PRN 11/16/18 [History] Aspirin [Ecotrin EC] 81 mg PO DAILY 11/16/18 [History] Calcium Carbonate [Calcium] 500 - 1,000 mg PO Q6H PRN 11/16/18 [History] Calcium Carbonate/Vitamin D3 [Calcium 600-Vit D3 400 Tablet] 1 tab PO BID 11/16/18 [History] Insulin Glargine,Hum.Rec.Anlog [Basaglar Kwikpen U-100] 25 units SUBCUT BID 11/16/18 [History] Magnesium Oxide 400 mg PO TID 11/16/18 [History] Pantoprazole Sodium [Protonix] 20 mg PO Q48H 11/16/18 [History] atorvaSTATin [Lipitor] 20 mg PO BEDTIME 11/16/18 [History] lisinopriL [Lisinopril] 5 mg PO DAILY 11/16/18 [History] Allopurinol [Zyloprim] 100 mg PO DAILY 09/03/19 [History] Insulin Lispro [Admelog] 10 unit SUBCUT TID 09/03/19 [History] Loperamide [Imodium] 2 mg PO TID PRN 09/03/19 [History] Nitroglycerin 0.4 mg SL ASDIRECTED PRN 09/03/19 [History] Torsemide 40 mg PO DAILY 09/03/19 [History] Trolamine Salicylate/Aloe Vera [Aspercreme 10% Cream] 1 applic TOP QID PRN 09/03/19 [History] Iodine/Isopropyl Alcohol [Iodine Tincture 1%-70% Amber] 1 applic TOP QID PRN 04/27/20 [History] Latanoprost 1 drop EYEBOTH BEDTIME 04/27/20 [History] Metoprolol Succinate 50 mg PO DAILY 04/27/20 [History] Montelukast [Singulair] 10 mg PO BEDTIME PRN 04/27/20 [History] Ondansetron [Zofran ODT] 4 mg SL Q6H PRN 04/27/20 [History] Semaglutide [Ozempic] 1 injection SUBCUT MO 04/27/20 [History] Torsemide 20 mg PO DAILY PRN 04/27/20 [History] Vit A/Vit C/Vit E/Zinc/Copper [Preservision] 1 tab PO BID 04/27/20 [History] calcitrioL [Calcitriol] 1 tab PO MOFR 04/27/20 [History] Amoxicillin 2,000 mg PO ASDIRECTED PRN 05/02/20 [History] Sodium Bicarbonate 650 mg PO DAILY 05/02/20 [History] Past Medical History HEENT History: Reports: Macular Degeneration Other HEENT History: reading glasses as needed. Cardiovascular History: Reports: Blood Clots/VTE/DVT, Heart Failure, High Cholesterol, Other (See Below) Other Cardiovascular History: artificial aorta. SVT Respiratory History: Reports: COPD Gastrointestinal History: Reports: Chronic Constipation, GERD, Hiatal Hernia Genitourinary History: Reports: Chronic Renal Insuffiency, Urinary Incontinence Musculoskeletal History: Reports: Osteoporosis Hematologic History: Reports: Anemia, B12 Deficiency - Infectious Disease History Infectious Disease History: Reports: Influenza - Past Surgical History HEENT Surgical History: Reports: Cataract Surgery Other Cardiovascular Surgeries/Procedures: heart-valve placement. coronary angioplasty implant and graft. nonrheumatic aortic valve stenosis Social & Family History - Tobacco Use Tobacco Use Status *Q: Former Tobacco User Years of Tobacco use: 66 Packs/Tins Daily: 0.5 Used Tobacco, but Quit: Yes Month/Year Tobacco Last Used: 2016 - Caffeine Use Caffeine Use: Reports: Coffee Other Caffeine Use: occassionally - Recreational Drug Use Recreational Drug Use: No H&P Review of Systems - Review of Systems: Review Of Systems: Comprehensive ROS is negative, except as noted in HPI. Exam - Exam Exam: See Below - Vital Signs Vital Signs: Last Vital Signs Temp 98.2 F 05/02/20 09:44 Pulse 50 L 05/02/20 08:52 Resp 20 05/02/20 08:52 BP 119/81 05/02/20 09:44 Pulse Ox 100 05/02/20 08:52 Weight: 235 lb 3.2 oz - Exam Quality Assessment: No: Supplemental Oxygen General: Alert, Oriented, 4 HEENT: Conjunctiva Clear, Hearing Intact, Mucosa Moist & [place] Neck: Supple, Trachea Midline, 2 Lungs: Normal Respiratory Effort, Crackles Cardiovascular: Regular Rate, Regular Rhythm GI/Abdominal Exam: Normal Bowel Sounds, Soft, Non-Tender, No Organomegaly, No Di stention, No Abnormal Bruit, No Mass Back Exam: Normal Inspection, Full Range of Motion, NT Extremities: Normal Inspection, Normal Range of Motion, Non-Tender, Normal Capillary Refill, Pedal Edema (1+) Peripheral Pulses: 1+: Posterior Tibial (L), Posterior Tibial (R), Dorsalis Pedis (L), Dorsalis Pedis (R) Skin: Warm, Dry, Intact Neuro Extensive - Mental Status: Alert, Oriented x3, Normal Mood/Affect, Normal Cognition, Memory Intact Neuro Extensive - Motor, Sensory, Reflexes: CN II-XII Intact Psychiatric: Alert, Normal Affect, Normal Mood - Patient Data Lab Results Last 24 hrs: Laboratory Results - last 24 hr 05/02/20 05/02/20 05/02/20 Range/Units 02:40 02:40 04:55 WBC 13.22 H (3.98-10.04) K/mm3 RBC 3.73 L (3.98-5.22) M/mm3 Hgb 11.9 (11.2-15.7) gm/dl Hct 38.4 (34.1-44.9) % MCV 102.9 H (79.4-94.8) fl MCH 31.9 (25.6-32.2) pg MCHC 31.0 L (32.2-35.5) g/dl RDW Std Deviation 59.0 H (36.4-46.3) fL Plt Count 322 (182-369) K/mm3 MPV 11.6 (9.4-12.3) fl Neut % (Auto) 66.1 (34.0-71.1) % Lymph % (Auto) 22.8 (19.3-51.7) % [place] % (Auto) 6.7 (4.7-12.5) % Eos % (Auto) 3.2 (0.7-5.8) Baso % (Auto) 0.7 (0.1-1.2) % Neut # (Auto) 8.75 H (1.56-6.13) K/mm3 Lymph # (Auto) 3.01 (1.18-3.74) K/mm3 [place] # (Auto) 0.88 H (0.24-0.36) K/mm3 Eos # (Auto) 0.42 H (0.04-0.36) K/mm3 Baso # (Auto) 0.09 H (0.01-0.08) K/mm3 Sodium 144 (136-145) mEq/L Potassium 4.1 (3.5-5.1) mEq/L Chloride 104 (98-107) mEq/L Carbon Dioxide 26 (21-32) mEq/L Anion Gap 18.1 H (5-15) BUN 33 H (7-18) mg/dL Creatinine 2.2 H (0.55-1.02) mg/dL Est Cr Clr Drug Dosing TNP Estimated GFR (MDRD) 21 (>60) mL/min BUN/Creatinine Ratio 15.0 (14-18) Glucose 161 H (83-115) mg/dL POC Glucose (83-110) mg/dL Calcium 9.3 (8.5-10.1) mg/dL Total Bilirubin 0.5 (0.2-1.0) mg/dL AST 14 L (15-37) U/L ALT 15 (14-59) U/L Alkaline Phosphatase 87 (46-116) U/L Troponin I 0.044 0.101 H* (0.00-0.056) ng/mL Total Protein 7.2 (6.4-8.2) g/dl Albumin 3.3 L (3.4-5.0) g/dl Globulin 3.9 gm/dL Albumin/Globulin Ratio 0.9 L (1-2) SARS-CoV-2 RNA ([facility]) (NEGATIVE) 05/02/20 05/02/20 Range/Units 07:00 07:23 WBC (3.98-10.04) K/mm3 RBC (3.98-5.22) M/mm3 Hgb (11.2-15.7) gm/dl Hct (34.1-44.9) % MCV (79.4-94.8) fl MCH (25.6-32.2) pg MCHC (32.2-35.5) g/dl RDW Std Deviation (36.4-46.3) fL Plt Count (182-369) K/mm3 MPV (9.4-12.3) fl Neut % (Auto) (34.0-71.1) % Lymph % (Auto) (19.3-51.7) % [place] % (Auto) (4.7-12.5) % Eos % (Auto) (0.7-5.8) Baso % (Auto) (0.1-1.2) % Neut # (Auto) (1.56-6.13) K/mm3 Lymph # (Auto) (1.18-3.74) K/mm3 [place] # (Auto) (0.24-0.36) K/mm3 Eos # (Auto) (0.04-0.36) K/mm3 Baso # (Auto) (0.01-0.08) K/mm3 Sodium (136-145) mEq/L Potassium (3.5-5.1) mEq/L Chloride (98-107) mEq/L Carbon Dioxide (21-32) mEq/L Anion Gap (5-15) BUN (7-18) mg/dL Creatinine (0.55-1.02) mg/dL Est Cr Clr Drug Dosing Estimated GFR (MDRD) (>60) mL/min BUN/Creatinine Ratio (14-18) Glucose (83-115) mg/dL POC Glucose 105 (83-110) mg/dL Calcium (8.5-10.1) mg/dL Total Bilirubin (0.2-1.0) mg/dL AST (15-37) U/L ALT (14-59) U/L Alkaline Phosphatase (46-116) U/L Troponin I (0.00-0.056) ng/mL Total Protein (6.4-8.2) g/dl Albumin (3.4-5.0) g/dl Globulin gm/dL Albumin/Globulin Ratio (1-2) SARS-CoV-2 RNA ([facility]) Negative (NEGATIVE) Result Diagrams: 05/02/20 02:40 05/02/20 02:40 Sepsis Event Note - Evaluation Sepsis Screening Result: No Definite Risk - Focused Exam Vital Signs: Vital Signs Temp Temp Pulse Pulse Resp BP BP 05/02/20 09:44 98.2 F 119/81 05/02/20 08:52 50 L 20 05/02/20 08:31 114/91 H 05/02/20 07:15 60 20 145/74 H 05/02/20 02:44 98.1 F 65 16 111/50 L Pulse Ox 05/02/20 09:44 05/02/20 08:52 100 05/02/20 08:31 05/02/20 07:15 100 05/02/20 02:44 98 - Problem List (1) Chronic renal insufficiency, stage IV (severe) SNOMED Code(s): 731155760 ICD Code: N18.4 - CHRONIC KIDNEY DISEASE, STAGE 4 (SEVERE) Status: Acute Current Visit: Yes (2) Insulin dependent diabetes mellitus SNOMED Code(s): 08181156 ICD Code: NJC2532 - Status: Acute Current Visit: Yes (3) Ischemic heart disease SNOMED Code(s): 617449455 ICD Code: I25.9 - CHRONIC ISCHEMIC HEART DISEASE, UNSPECIFIED Status: Acute Current Visit: Yes (4) Non-STEMI (non-ST elevated myocardial infarction) SNOMED Code(s): 48663606 ICD Code: I21.4 - NON-ST ELEVATION (NSTEMI) MYOCARDIAL INFARCTION Status: Acute Current Visit: Yes (5) Paroxysmal supraventricular tachycardia SNOMED Code(s): 17201932 ICD Code: I47.1 - SUPRAVENTRICULAR TACHYCARDIA Status: Acute Current Vi sit: Yes Problem List Initiated/Reviewed/Updated: Yes Orders Last 24hrs: Active Orders 24 hr Category Date Time Status Patient Status [ADT] Routine ADT 05/02/20 06:53 Active Blood Glucose Check, Bedside [RC] WITHMEALSANDBED Care 05/02/20 11:52 Ordered Oxygen Therapy [RC] PRN Care 05/02/20 11:44 Ordered Up With Assistance [RC] ASDIRECTED Care 05/02/20 11:21 Active VTE/DVT Education [RC] PER UNIT ROUTINE Care 05/02/20 11:44 Ordered Vital Signs [RC] Q4H Care 05/02/20 11:44 Ordered PT Evaluation and Treatment [CONS] Routine Cons 05/03/20 11:44 Ordered [employer] Diet [DIET] Diet 05/02/20 Dinner Active Heart Healthy Diet [DIET] Diet 05/02/20 Dinner Ordered TROPONIN I [CHEM] Routine Lab 05/02/20 11:44 Ordered Acetaminophen [TylenoL] Med 05/02/20 11:44 Ordered 650 mg PO Q4H PRN Albuterol Med 05/02/20 11:47 Ordered 2 puff INH Q4H PRN Aspirin [Halfprin] Med 05/03/20 09:00 Ordered 81 mg PO DAILY Calcium Carbonate/Vitamin D3 Med 05/02/20 21:00 Ordered 1 tab PO BID Enoxaparin [Lovenox] Med 05/03/20 09:00 Ordered 30 mg SUBCUT DAILY Insulin Glarg,Human.Rec.Analog [LantUS] Med 05/02/20 16:00 Ordered 20 unit SUBCUT BIDAC Insulin Lispro [HumaLOG] Med 05/02/20 17:00 Ordered 7 unit SUBCUT TIDAC Insulin Lispro [HumaLOG] Med 05/02/20 17:00 Ordered See Protocol SUBCUT QIDACANDBED Latanoprost [Xalatan 0.005% Ophth Soln] Med 05/02/20 21:00 Ordered 1 drop EYEBOTH BEDTIME Montelukast [Singulair] Med 05/02/20 11:47 Ordered 10 mg PO BEDTIME PRN Nitroglycerin [Nitrostat] Med 05/02/20 11:47 Ordered 0.4 mg SL ASDIRECTED PRN Nitroglycerin [Nitrostat] Med 05/02/20 11:21 Active 0.4 mg SL Q5M PRN Ondansetron [Zofran] Med 05/02/20 11:44 Ordered 4 mg IV Q4H PRN Sodium Bicarbonate Med 05/03/20 09:00 Ordered 650 mg PO DAILY Torsemide [Demadex] Med 05/02/20 12:00 Ordered 40 mg PO DAILY allopurinoL [Zyloprim] Med 05/03/20 09:00 Ordered 100 mg PO DAILY atorvaSTATin Med 05/02/20 21:00 Ordered 20 mg PO BEDTIME lisinopriL [Prinivil] Med 05/03/20 09:00 Ordered 5 mg PO DAILY Resuscitation Status Routine Resus Stat 05/02/20 11:21 Ordered EKG 12 Lead [EK] Stat Ther 05/02/20 02:42 Ordered Medication Orders Acetaminophen (Tylenol) 650 mg PO Q4H PRN PRN Reason: Pain (Mild 1-3)/fever Allopurinol (Zyloprim) 100 mg PO DAILY [facility] Aspirin (Halfprin) 81 mg PO DAILY [facility] Enoxaparin Sodium (Lovenox) 30 mg SUBCUT DAILY [facility] Insulin Glargine (Lantus) 20 unit SUBCUT BIDAC [facility] Insulin Human Lispro (Humalog) 0 unit SUBCUT QIDACANDBED [facility]; Protocol Latanoprost (Xalatan 0.005% Ophth Soln) ml EYEBOTH BEDTIME [facility] Lisinopril (Prinivil) 5 mg PO DAILY [facility] Montelukast Sodium (Singulair) 10 mg PO BEDTIME PRN PRN Reason: Allergies Nitroglycerin (Nitrostat) 0.4 mg SL Q5M PRN PRN Reason: Chest Pain Nitroglycerin (Nitrostat) 0.4 mg SL ASDIRECTED PRN PRN Reason: Chest Pain Non-Formulary Medication (Albuterol) 2 puff INH Q4H PRN PRN Reason: Shortness of Breath Non-Formulary Medication (Atorvastatin) 20 mg PO BEDTIME [facility] Non-Formulary Medication (Calcium Carbonate/Vitamin D3) 1 tab PO BID [facility] Ondansetron HCl (Zofran) 4 mg IV Q4H PRN PRN Reason: Nausea/Vomiting Sodium Bicarbonate (Sodium Bicarbonate) 650 mg PO DAILY [facility] Torsemide (Demadex) 40 mg PO DAILY [facility] Assessment/Plan Comment:: Assessment 85-year-old female with history of PSVT, heart failure, COPD, hypertension presents to the emergency department after experiencing sustained chest pain following a sustained episode of racing heart. Patient sustained a bump in her troponin without change in EKG consistent with a type II MO secondary to increased oxygen demand from tachycardia. NSTEMI/type II MO CHF PSVT * 85-year-old female who has recently been evaluated by cardiology and a Holter monitor admitted with the above. * Initial troponin on presentation was 0.044 and repeat was 0.101 * Serial EKGs did not show any changes. * Patient is currently asymptomatic and family, patient, and per cardiology request monitoring inpatient for further episodes of PSVT and chest pain. 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 This appears to be stable since most recent available renal function Other chronic medical conditions: Hypertension, gout, hyperlipidemia, GERD, COPD, hypomagnesemia, anemia, vitamin D B12 deficiency, question pernicious anemia, osteoporosis, urinary incontinence, chronic constipation, artificial aorta? Plan * Admit to medical floor on telemetry * Serial troponins * Monitor EKG as needed * Continue home meds and adjust appropriately * Patient is on 60 mg of torsemide daily it appears per her history, but there are 2 different orders. 1 order is for torsemide 40 mg p.o. daily by history of 09/03/2019 and the other is torsemide 20 mg p.o. daily as needed by history of 04/27/2020. * At this time continue torsemide 40 mg daily and monitor strict I's and O's and daily weights. * CODE STATUS: DNR with intubation * Length of stay likely 48 hours. We will want to monitor her on telemetry for 24 to 48 hours. - Mortality Measure Prognosis:: Poor
[2020-05-02] MEDS: Nystatin Topical Powder 15 GM Bottle TOP SCH ×2 (12:53→21:08)
[2020-05-02] MEDS: Torsemide 20 MG Tab PO SCH (12:53)
[2020-05-02] MEDS: Insulin Glarg,Human.Rec.Analog 100 Unit/ML SUBCUT SCH (17:41)
[2020-05-02] MEDS ORDERED: Simvastatin 20 MG Tab PO SCH (21:00)
[2020-05-02] MEDS ORDERED: Latanoprost 0.005% Ophth Soln 2.5 ML Bottle EYEBOTH SCH (21:00)
[2020-05-02] MEDS: Calcium Carbonate/Vitamin D3 600 MG-200 Units Tab PO SCH (21:07)
[2020-05-03] MEDS: Insulin Glarg,Human.Rec.Analog 100 Unit/ML SUBCUT SCH (06:41)
[2020-05-03] MEDS: Nystatin Topical Powder 15 GM Bottle TOP SCH (08:29)
[2020-05-03] MEDS: Calcium Carbonate/Vitamin D3 600 MG-200 Units Tab PO SCH (08:30)
[2020-05-03] MEDS: Torsemide 20 MG Tab PO SCH (08:31)
[2020-05-03] MEDS ORDERED: Enoxaparin 30 MG/0.3 ML Syringe SUBCUT SCH (09:00)
[2020-05-03] MEDS ORDERED: Aspirin 81 MG Tab.EC PO SCH (09:00)
[2020-05-03] MEDS ORDERED: Lisinopril 5 MG Tab PO SCH (09:00)
[2020-05-03] MEDS ORDERED: Sodium Bicarbonate 650 MG Tab PO SCH (09:00)
[2020-05-03] MEDS ORDERED: Allopurinol 100 MG Tab PO SCH (09:00)
[2020-05-03] MEDS ORDERED: Calcium Carbonate 500 MG Tab.Chew PO PRN (10:28)
[2020-05-03] MEDS ORDERED: Adenosine 12 MG/4 ML SDV ONE (10:44)
[2020-05-03] MEDS: Adenosine 6 MG/2 ML SDV ONE ×2 (11:05→11:40)
--- NOTE | 2020-05-03 11:17 | PCM.PN ---
- General Info Date of Service: 05/03/20 Admission Dx/Problem (Free Text): Admission Diagnosis/Problem Admission Diagnosis/Problem Non-ST elevation (NSTEMI) myocardial infarction Subjective Update: Patient was doing well this morning until she had an episode of PSVT. Heart rate started at 150 and EKG confirmed SVT with ST depressions in the leads anterior lateral leads. Patient did try Valsalva maneuvers which did not help and her heart rate did go up to the 180s. Patient was given 6 mg of adenosine and converted back to sinus rhythm in the 90s. After approximately 30 minutes patient was trying to sit up in bed and went back into SVT. Patient was given another 6 mg of adenosine and then Lopressor 5 mg IV x2. Heart rate was in the 140s and she was given her oral metoprolol succinate 50 mg. For the next hour patient continued in the 140s so she was given 1 more dose of Lopressor 5 mg with good results. She is now in the 70s heart rate. She did require 500 mL bolus of normal saline to increase her blood pressure from the upper 70s systolic to 105 systolic. - Patient Data Vitals - Most Recent: Last Vital Signs Temp 98.1 F 05/03/20 04:02 Pulse 84 05/03/20 07:39 Resp 16 05/03/20 07:39 BP 111/54 L 05/03/20 08:31 Pulse Ox 97 05/03/20 07:39 Weight - Most Recent: 232 lb 8 oz I&O - Last 24 Hours: Intake & Output 05/02/20 05/03/20 05/03/20 22:59 06:59 14:59 Intake Total 350 225 Output Total 550 500 Balance -200 -275 Lab Results Last 24 Hours: Laboratory Results - last 24 hr 05/02/20 05/02/20 05/02/20 Range/Units 12:33 12:34 17:30 WBC (3.98-10.04) K/mm3 RBC (3.98-5.22) M/mm3 Hgb (11.2-15.7) gm/dl Hct (34.1-44.9) % MCV (79.4-94.8) fl MCH (25.6-32.2) pg MCHC (32.2-35.5) g/dl RDW Std Deviation (36.4-46.3) fL Plt Count (182-369) K/mm3 MPV (9.4-12.3) fl Neut % (Auto) (34.0-71.1) % Lymph % (Auto) (19.3-51.7) % [place] % (Auto) (4.7-12.5) % Eos % (Auto) (0.7-5.8) Baso % (Auto) (0.1-1.2) % Neut # (Auto) (1.56-6.13) K/mm3 Lymph # (Auto) (1.18-3.74) K/mm3 [place] # (Auto) (0.24-0.36) K/mm3 Eos # (Auto) (0.04-0.36) K/mm3 Baso # (Auto) (0.01-0.08) K/mm3 POC Glucose 127 H 134 H (83-110) mg/dL Troponin I 0.360 H* (0.00-0.056) ng/mL 05/02/20 05/03/20 05/03/20 Range/Units 20:56 06:37 10:30 WBC 11.01 H (3.98-10.04) K/mm3 RBC 3.65 L (3.98-5.22) M/mm3 Hgb 11.5 (11.2-15.7) gm/dl Hct 37.4 (34.1-44.9) % MCV 102.5 H (79.4-94.8) fl MCH 31.5 (25.6-32.2) pg MCHC 30.7 L (32.2-35.5) g/dl RDW Std Deviation 57.4 H (36.4-46.3) fL Plt Count 295 (182-369) K/mm3 MPV 11.2 (9.4-12.3) fl Neut % (Auto) 65.3 (34.0-71.1) % Lymph % (Auto) 22.9 (19.3-51.7) % [place] % (Auto) 8.3 (4.7-12.5) % Eos % (Auto) 2.5 (0.7-5.8) Baso % (Auto) 0.5 (0.1-1.2) % Neut # (Auto) 7.18 H (1.56-6.13) K/mm3 Lymph # (Auto) 2.52 (1.18-3.74) K/mm3 [place] # (Auto) 0.91 H (0.24-0.36) K/mm3 Eos # (Auto) 0.28 (0.04-0.36) K/mm3 Baso # (Auto) 0.06 (0.01-0.08) K/mm3 POC Glucose 105 110 (83-110) mg/dL Troponin I (0.00-0.056) ng/mL Med Orders - Current: Current Medications Acetaminophen (Tylenol) 650 mg PO Q4H PRN PRN Reason: Pain (Mild 1-3)/fever Albuterol (Proventil Hfa) 0 gm INH Q4H PRN PRN Reason: Shortness of Breath Allopurinol (Zyloprim) 100 mg PO DAILY [facility] Last Admin: 05/03/20 08:30 Dose: 100 mg Documented by: Aspirin (Halfprin) 81 mg PO DAILY [facility] Last Admin: 05/03/20 08:30 Dose: 81 mg Documented by: Calcium Carbonate (Calcium Carbonate/Vitamin D 600 Mg-200 Unit) 1 tab PO BID [facility] Last Admin: 05/03/20 08:30 Dose: 1 tab Documented by: Calcium Carbonate/Glycine (Tums) 1,000 mg PO Q4HR PRN PRN Reason: Indigestion Enoxaparin Sodium (Lovenox) 30 mg SUBCUT DAILY [facility] Last Admin: 05/03/20 08:29 Dose: 30 mg Documented by: Insulin Glargine (Lantus) 20 unit SUBCUT BIDAC [facility] Last Admin: 05/03/20 06:41 Dose: 20 units Documented by: Insulin Human Lispro (Humalog) 0 unit SUBCUT QIDACANDBED [facility]; Protocol Last Admin: 05/03/20 07:10 Dose: Not Given Documented by: Insulin Human Lispro (Humalog) 7 unit SUBCUT TIDAC [facility] Last Admin: 05/03/20 08:33 Dose: 4 units Documented by: Latanoprost (Xalatan 0.005% Ophth Soln) 0 ml EYEBOTH BEDTIME [facility] Last Admin: 05/02/20 21:08 Dose: 1 drop Documented by: Lisinopril (Prinivil) 5 mg PO DAILY [facility] Last Admin: 05/03/20 08:31 Dose: 5 mg Documented by: Montelukast Sodium (Singulair) 10 mg PO BEDTIME PRN PRN Reason: Allergies Nitroglycerin (Nitrostat) 0.4 mg SL Q5M PRN PRN Reason: Chest Pain Nitroglycerin (Nitrostat) 0.4 mg SL ASDIRECTED PRN PRN Reason: Chest Pain Nystatin (Nystop) 0 gm TOP BID [facility] Last Admin: 05/03/20 08:29 Dose: 1 applic Documented by: Ondansetron HCl (Zofran) 4 mg IV Q4H PRN PRN Reason: Nausea/Vomiting Simvastatin (Zocor) 20 mg PO BEDTIME [facility] Last Admin: 05/02/20 21:07 Dose: 20 mg Documented by: Sodium Bicarbonate (Sodium Bicarbonate) 650 mg PO DAILY [facility] Last Admin: 05/03/20 08:30 Dose: 650 mg Documented by: Torsemide (Demadex) 40 mg PO DAILY [facility] Last Admin: 05/03/20 08:31 Dose: 40 mg Documented by: Discontinued Medications Adenosine (Adenocard) Confirm Administered Dose 6 mg .ROUTE .STK-MED ONE Stop: 05/03/20 10:45 Last Admin: 05/03/20 11:05 Dose: 6 mg Documented by: Adenosine (Adenocard) Confirm Administered Dose 12 mg .ROUTE .STK-MED ONE Stop: 05/03/20 10:45 - Exam Quality Assessment: Supplemental Oxygen General: Alert, Oriented HEENT: Pupils Equal, Mucous Membr. Moist/[place] Neck: Supple Lungs: Normal Respiratory Effort, Rales (Mild bibasilar) Cardiovascular: Regular Rate, Regular Rhythm GI/Abdominal Exam: Normal Bowel Sounds, Soft, Non-Tender, No Distention Extremities: Normal Inspection, Normal Range of Motion, Non-Tender, No Pedal Edema, Normal Capillary Refill Skin: Warm, Dry, Intact Neurological: No New Focal Deficit Psy/Mental Status: Alert, Normal Affect, Normal Mood Sepsis Event Note - Evaluation Sepsis Screening Result: No Definite Risk - Focused Exam Vital Signs: Vital Signs Temp Pulse Resp BP Pulse Ox 05/03/20 08:31 111/54 L 05/03/20 07:39 84 16 111/54 L 97 05/03/20 04:02 98.1 F 88 20 151/43 H 100 05/03/20 00:47 99.1 F 69 18 121/47 L 97 - Problem List & Annotations (1) Chronic renal insufficiency, stage IV (severe) SNOMED Code(s): 182809593 Code(s): N18.4 - CHRONIC KIDNEY DISEASE, STAGE 4 (SEVERE) Status: Acute Current Visit: Yes (2) Insulin dependent diabetes mellitus SNOMED Code(s): 52691770 Code(s): RHF8291 - Status: Acute Current Visit: Yes (3) Ischemic heart disease SNOMED Code(s): 727446706 Code(s): I25.9 - CHRONIC ISCHEMIC HEART DISEASE, UNSPECIFIED Status: Acute Current Visit: Yes (4) Non-STEMI (non-ST elevated myocardial infarction) SNOMED Code(s): 82678207 Code(s): I21.4 - NON-ST ELEVATION (NSTEMI) MYOCARDIAL INFARCTION Status: Acute Current Visit: Yes (5) Paroxysmal supraventricular tachycardia SNOMED Code(s): 81503445 Code(s): I47.1 - SUPRAVENTRICULAR TACHYCARDIA Status: Acute Current Visit: Yes - Problem List Review Problem List Initiated/Reviewed/Updated: Yes - My Orders Last 24 Hours: My Active Orders 05/02/20 11:21 Up With Assistance [RC] QSHIFT Nitroglycerin [Nitrostat] 0.4 mg SL Q5M PRN Resuscitation Status Routine 05/02/20 11:44 Oxygen Therapy [RC] PRN VTE/DVT Education [RC] DAILY Vital Signs [RC] Q4HR Acetaminophen [TylenoL] 650 mg PO Q4H PRN Ondansetron [Zofran] 4 mg IV Q4H PRN 05/02/20 11:47 Albuterol [Proventil HFA] 0 gm INH Q4H PRN Montelukast [Singulair] 10 mg PO BEDTIME PRN Nitroglycerin [Nitrostat] 0.4 mg SL ASDIRECTED PRN 05/02/20 11:52 Blood Glucose Check, Bedside [RC] WITHMEALSANDBED 05/02/20 12:00 Nystatin [Nystop] See Dose Instructions TOP BID Torsemide [Demadex] 40 mg PO DAILY 05/02/20 16:00 Insulin Glarg,Human.Rec.Analog [LantUS] 20 unit SUBCUT BIDAC 05/02/20 Dinner [employer] [employer] Diet [DIET] Heart Healthy Diet [DIET] Insulin Lispro [HumaLOG] 7 unit SUBCUT TIDAC Insulin Lispro [HumaLOG] See Protocol SUBCUT QIDACANDBED 05/02/20 21:00 Calcium Carbonate/Vitamin D3 [Calcium Carbonate/Vitamin D 600 MG-200 Unit] 1 tab PO BID Latanoprost [Xalatan 0.005% Ophth Soln] 0 ml EYEBOTH BEDTIME Simvastatin [Zocor] 20 mg PO BEDTIME 05/03/20 09:00 Aspirin [Halfprin] 81 mg PO DAILY Enoxaparin [Lovenox] 30 mg SUBCUT DAILY Sodium Bicarbonate 650 mg PO DAILY allopurinoL [Zyloprim] 100 mg PO DAILY lisinopriL [Prinivil] 5 mg PO DAILY 05/03/20 10:27 EKG 12 Lead [EK] Stat 05/03/20 10:28 EKG Documentation Completion [RC] ASDIRECTED Calcium Carbonate [Tums] 1,000 mg PO Q4HR PRN 05/03/20 10:30 COMPREHENSIVE METABOLIC PN,CMP [CHEM] Stat MAGNESIUM [CHEM] Stat TROPONIN I [CHEM] Stat TSH [CHEM] Stat 05/03/20 11:44 PT Evaluation and Treatment [CONS] Routine - Plan Plan:: Assessment 05/02/2020 85-year-old female with history of PSVT, heart failure, COPD, hypertension presents to the emergency department after experiencing sustained chest pain following a sustained episode of racing heart. Patient sustained a bump in her troponin without change in EKG consistent with a type II WA secondary to increased oxygen demand from tachycardia. NSTEMI/type II [place] CHF PSVT * 85-year-old female who has recently been evaluated by cardiology and a Holter monitor admitted with the above. * Initial troponin on presentation was 0.044 and repeat was 0.101 * Serial EKGs did not show any changes. * Patient is currently asymptomatic and family, patient, and per cardiology request monitoring inpatient for further episodes of PSVT and chest pain. 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 This appears to be stable since most recent available renal function Other chronic medical conditions: Hypertension, gout, hyperlipidemia, GERD, COPD, hypomagnesemia, anemia, vitamin D B12 deficiency, question pernicious anemia, osteoporosis, urinary incontinence, chronic constipation, artificial aorta? Plan * Admit to medical floor on telemetry * Serial troponins * Monitor EKG as needed * Continue home meds and adjust appropriately * Patient is on torsemide 40 mg p.o. daily by history of 09/03/2019 and the other is torsemide 20 mg p.o. daily as needed by history of 04/27/2020. * At this time continue torsemide 40 mg daily and monitor strict I's and O's and daily weights. * CODE STATUS: DNR with intubation * Length of stay likely 48 hours. We will want to monitor her on telemetry for 24 to 48 hours. 05/03/2020 Patient clearly does not tolerate not being off of her beta-blockers and will need further evaluation as an inpatient by cardiology. Patient initially had been on metoprolol succinate 50 mg daily at home but still had the breakthrough at home that caused the type II WA. After speaking with her and her family it was felt that she would benefit from going to a tertiary care hospital for further diagnosis and treatment.
[2020-05-03] MEDS ORDERED: Metoprolol Tartrate 5 MG/5 ML SDV ONE ×3 (11:23→11:45)
[2020-05-03] MEDS ORDERED: Metoprolol Succinate 50 MG Tab.ER PO SCH (11:30)
[2020-05-03] MEDS ORDERED: Metoprolol Tartrate 5 MG in Sodium Chloride 0.9% 50 ML IV ONE (13:06)
[2020-05-03] MEDS ORDERED: Sodium Chloride 0.9% 500 ML IV ONE (13:12)
[2020-05-03] MEDS ORDERED: Sodium Chloride 0.9% 1,000 ML ONE (13:16)
[2020-05-03] MEDS ORDERED: LORazepam 2 MG/ML SDV IVPUSH ONE (13:30)
[2020-05-03] MEDS ORDERED: Metoprolol Tartrate 5 MG/5 ML SDV IV ONE (13:30)
--- NOTE | 2020-05-03 14:44 | PCM.DCSUM1 ---
Discharge Summary - Hospital Course HPI Initial Comments: 85-year-old female with history of PSVT presented to the emergency department after having an episode of palpitations with shortness of breath and chest pain. Patient described chest pain to be sharp and moderate in severity. It lasted several minutes until she received nitroglycerin. Patient states that she has been wearing a Holter monitor because of recurrent episodes of PSVT and last night developed atypical episode, but she also developed chest pain. Patient tried to wait, but ultimately had to call [facility] nurse who alerted EMS. The [facility] nurse found her to have a heart rate of 150 and she was given a single nitroglycerin which seemed to stop the pain. When she arrived to the emergency department patient was not in distress and her chest pain as well as her tachycardia resolved. Initial EKG showed normal sinus rhythm with ventricular rate of 75 bpm. Evidence of old anterior septal PA. There is no acute ischemia and no acute ST-T wave changes. Troponin at that point time was 0.044, within normal limits. Repeat troponin III hours later did bump up to 0.101, normal 0.05, and second EKG showed no significant changes and again no acute ST or T wave changes. On-call cardiology was consulted and felt that the patient had a NSTEMI but did not need to have work-up since it seems to have been rate related. Also, it was determined that she did not need anticoagulation. At this point it was felt we could safely monitor her here in our hospital, but if things worsened or she developed a STEMI would reevaluate her for transfer. She states she does not want to be resuscitated but does want to be intubated. Assessment 85-year-old female with history of PSVT, heart failure, COPD, hypertension presents to the emergency department after experiencing sustained chest pain following a sustained episode of racing heart. Patient sustained a bump in her troponin without change in EKG consistent with a type II PA secondary to increased oxygen demand from tachycardia. NSTEMI/type II PA CHF PSVT * 85-year-old female who has recently been evaluated by cardiology and a Holter monitor admitted with the above. * Initial troponin on presentation was 0.044 and repeat was 0.101 * Serial EKGs did not show any changes. * Patient is currently asymptomatic and family, patient, and per cardiology request monitoring inpatient for further episodes of PSVT and chest pain. 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 This appears to be stable since most recent available renal function Other chronic medical conditions: Hypertension, gout, hyperlipidemia, GERD, COPD, hypomagnesemia, anemia, vitamin D B12 deficiency, question pernicious an emia, osteoporosis, urinary incontinence, chronic constipation, artificial aorta? Plan * Admit to medical floor on telemetry * Serial troponins * Monitor EKG as needed * Continue home meds and adjust appropriately * Patient is on 60 mg of torsemide daily it appears per her history, but there are 2 different orders. 1 order is for torsemide 40 mg p.o. daily by history of 09/03/2019 and the other is torsemide 20 mg p.o. daily as needed by history of 04/27/2020. * At this time continue torsemide 40 mg daily and monitor strict I's and O's and daily weights. * CODE STATUS: DNR with intubation * Length of stay likely 48 hours. We will want to monitor her on telemetry for 24 to 48 hours. - Mortality Measure Prognosis:: Poor Diagnosis: Stroke: No - Discharge Data Discharge Date: 05/03/20 Discharge Disposition: DC/Tfer to Acute Hospital 02 Condition: Good - Referral to Home Health Primary Care Physician: Walter Sahu MD - Discharge Diagnosis/Problem(s) (1) Chronic renal insufficiency, stage IV (severe) SNOMED Code(s): 105182791 ICD Code: N18.4 - CHRONIC KIDNEY DISEASE, STAGE 4 (SEVERE) Status: Acute Current Visit: Yes (2) Insulin dependent diabetes mellitus SNOMED Code(s): 67410212 ICD Code: AOJ3429 - Status: Acute Current Visit: Yes (3) Ischemic heart disease SNOMED Code(s): 763844944 ICD Code: I25.9 - CHRONIC ISCHEMIC HEART DISEASE, UNSPECIFIED Status: Acute Current Visit: Yes (4) Non-STEMI (non-ST elevated myocardial infarction) SNOMED Code(s): 90764454 ICD Code: I21.4 - NON-ST ELEVATION (NSTEMI) MYOCARDIAL INFARCTION Status: Acute Current Visit: Yes (5) Paroxysmal supraventricular tachycardia SNOMED Code(s): 26117763 ICD Code: I47.1 - SUPRAVENTRICULAR TACHYCARDIA Status: Acute Current Visit: Yes - Patient Summary/Data Consults: Consultations 05/03/20 11:44 PT Evaluation and Treatment [CONS] Routine Hospital Course: Patient was doing well this morning until she had an episode of SVT. Heart rate started at 150 and EKG confirmed SVT with ST depressions in the leads anterior lateral leads. Patient did try Valsalva maneuvers which did not help and her heart rate did go up to the 180s. Patient was given 6 mg of adenosine and converted back to sinus rhythm in the 90s. After approximately 30 minutes patient was trying to sit up in bed and went back into SVT. Patient was given another 6 mg of adenosine and then Lopressor 5 mg IV x2. Heart rate was in the 140s and she was given her oral metoprolol succinate 50 mg. For the next hour patient continued in the 140s so she was given 1 more dose of Lopressor 5 mg with good results. She is now in the 70s heart rate. She did require 500 mL bolus of normal saline to increase her blood pressure from the upper 70s systolic to 105 systolic. 05/03/2020 Patient clearly does not tolerate not being off of her beta-blockers and will need further evaluation as an inpatient by cardiology. Patient initially had been on metoprolol succinate 50 mg daily at home but still had the breakthrough at home that caused the type II PA. After speaking with her and her family it was felt that she would benefit from going to a tertiary care hospital for further diagnosis and treatment. - Patient Instructions Diet: Heart Healthy Diet Driving: Do Not Drive Other/Special Instructions: Transfer to [facility]. - Discharge Plan *PRESCRIPTION DRUG MONITORING PROGRAM REVIEWED*: No *COPY OF PRESCRIPTION DRUG MONITORING REPORT IN PATIENT ROBIN: No Home Medications: Home Meds Acetaminophen 325 mg PO BID 11/16/18 [History] Acetaminophen 650 mg PO Q4H PRN 11/16/18 [History] Albuterol [Ventolin HFA] 2 puff INH Q4H PRN 11/16/18 [History] Aspirin [Ecotrin EC] 81 mg PO DAILY 11/16/18 [History] Calcium Carbonate [Calcium] 500 - 1,000 mg PO Q6H PRN 11/16/18 [History] Calcium Carbonate/Vitamin D3 [Calcium 600-Vit D3 400 Tablet] 1 tab PO BID 11/16/18 [History] Insulin Glargine,Hum.Rec.Anlog [Basaglar Kwikpen U-100] 25 units SUBCUT BID 11/16/18 [History] Magnesium Oxide 400 mg PO TID 11/16/18 [History] Pantoprazole Sodium [Protonix] 20 mg PO Q48H 11/16/18 [History] atorvaSTATin [Lipitor] 20 mg PO BEDTIME 11/16/18 [History] lisinopriL [Lisinopril] 5 mg PO DAILY 11/16/18 [History] Allopurinol [Zyloprim] 100 mg PO DAILY 09/03/19 [History] Insulin Lispro [Admelog] 10 unit SUBCUT TID 09/03/19 [History] Loperamide [Imodium] 2 mg PO TID PRN 09/03/19 [History] Nitroglycerin 0.4 mg SL ASDIRECTED PRN 09/03/19 [History] Torsemide 40 mg PO DAILY 09/03/19 [History] Trolamine Salicylate/Aloe Vera [Aspercreme 10% Cream] 1 applic TOP QID PRN 09/03/19 [History] Iodine/Isopropyl Alcohol [Iodine Tincture 1%-70% Amber] 1 applic TOP QID PRN 04/27/20 [History] Latanoprost 1 drop EYEBOTH BEDTIME 04/27/20 [History] Metoprolol Succinate 50 mg PO DAILY 04/27/20 [History] Montelukast [Singulair] 10 mg PO BEDTIME PRN 04/27/20 [History] Ondansetron [Zofran ODT] 4 mg SL Q6H PRN 04/27/20 [History] Semaglutide [Ozempic] 1 injection SUBCUT MO 04/27/20 [History] Torsemide 20 mg PO DAILY PRN 04/27/20 [History] Vit A/Vit C/Vit E/Zinc/Copper [Preservision] 1 tab PO BID 04/27/20 [History] calcitrioL [Calcitriol] 1 tab PO MOFR 04/27/20 [History] Amoxicillin 2,000 mg PO ASDIRECTED PRN 05/02/20 [History] Sodium Bicarbonate 650 mg PO DAILY 05/02/20 [History] Oxygen Therapy Mode: Room Air Patient Handouts: Heart Attack, [id number] - Discharge Summary/Plan Comment DC Time >30 min.: Yes - Patient Data Vitals - Most Recent: Last Vital Signs Temp 97.4 F 05/03/20 13:40 Pulse 69 05/03/20 13:40 Resp 23 H 05/03/20 14:31 BP 119/56 L 05/03/20 14:31 Pulse Ox 92 L 05/03/20 14:31 Weight - Most Recent: 232 lb 8 oz I&O - Last 24 hours: Intake & Output 05/02/20 05/03/20 05/03/20 22:59 06:59 14:59 Intake Total 350 225 Output Total 550 500 Balance -200 -275 Lab Results - Last 24 hrs: Laboratory Results - last 24 hr 05/02/20 05/02/20 05/03/20 Range/Units 17:30 20:56 06:37 WBC (3.98-10.04) K/mm3 RBC (3.98-5.22) M/mm3 Hgb (11.2-15.7) gm/dl Hct (34.1-44.9) % MCV (79.4-94.8) fl MCH (25.6-32.2) pg MCHC (32.2-35.5) g/dl RDW Std Deviation (36.4-46.3) fL Plt Count (182-369) K/mm3 MPV (9.4-12.3) fl Neut % (Auto) (34.0-71.1) % Lymph % (Auto) (19.3-51.7) % Greene % (Auto) (4.7-12.5) % Eos % (Auto) (0.7-5.8) Baso % (Auto) (0.1-1.2) % Neut # (Auto) (1.56-6.13) K/mm3 Lymph # (Auto) (1.18-3.74) K/mm3 Greene # (Auto) (0.24-0.36) K/mm3 Eos # (Auto) (0.04-0.36) K/mm3 Baso # (Auto) (0.01-0.08) K/mm3 Sodium (136-145) mEq/L Potassium (3.5-5.1) mEq/L Chloride (98-107) mEq/L Carbon Dioxide (21-32) mEq/L Anion Gap (5-15) BUN (7-18) mg/dL Creatinine (0.55-1.02) mg/dL Est Cr Clr Drug Dosing mL/min Estimated GFR (MDRD) (>60) mL/min BUN/Creatinine Ratio (14-18) Glucose (83-115) mg/dL POC Glucose 134 H 105 110 (83-110) mg/dL Calcium (8.5-10.1) mg/dL Magnesium (1.8-2.4) mg/dl Total Bilirubin (0.2-1.0) mg/dL AST (15-37) U/L ALT (14-59) U/L Alkaline Phosphatase (46-116) U/L Troponin I (0.00-0.056) ng/mL Total Protein (6.4-8.2) g/dl Albumin (3.4-5.0) g/dl Globulin gm/dL Albumin/Globulin Ratio (1-2) TSH 3rd Generation (0.358-3.74) uIU/mL 05/03/20 05/03/20 05/03/20 Range/Units 10:30 10:30 11:56 WBC 11.01 H (3.98-10.04) K/mm3 RBC 3.65 L (3.98-5.22) M/mm3 Hgb 11.5 (11.2-15.7) gm/dl Hct 37.4 (34.1-44.9) % MCV 102.5 H (79.4-94.8) fl MCH 31.5 (25.6-32.2) pg MCHC 30.7 L (32.2-35.5) g/dl RDW Std Deviation 57.4 H (36.4-46.3) fL Plt Count 295 (182-369) K/mm3 MPV 11.2 (9.4-12.3) fl Neut % (Auto) 65.3 (34.0-71.1) % Lymph % (Auto) 22.9 (19.3-51.7) % Greene % (Auto) 8.3 (4.7-12.5) % Eos % (Auto) 2.5 (0.7-5.8) Baso % (Auto) 0.5 (0.1-1.2) % Neut # (Auto) 7.18 H (1.56-6.13) K/mm3 Lymph # (Auto) 2.52 (1.18-3.74) K/mm3 Greene # (Auto) 0.91 H (0.24-0.36) K/mm3 Eos # (Auto) 0.28 (0.04-0.36) K/mm3 Baso # (Auto) 0.06 (0.01-0.08) K/mm3 Sodium 143 (136-145) mEq/L Potassium 3.9 (3.5-5.1) mEq/L Chloride 103 (98-107) mEq/L Carbon Dioxide 30 (21-32) mEq/L Anion Gap 13.9 (5-15) BUN 34 H (7-18) mg/dL Creatinine 2.2 H (0.55-1.02) mg/dL Est Cr Clr Drug Dosing 15.32 mL/min Estimated GFR (MDRD) 21 (>60) mL/min BUN/Creatinine Ratio 15.5 (14-18) Glucose 135 H (83-115) mg/dL POC Glucose 124 H (83-110) mg/dL Calcium 9.8 (8.5-10.1) mg/dL Magnesium 2.1 (1.8-2.4) mg/dl Total Bilirubin 0.6 (0.2-1.0) mg/dL AST 14 L (15-37) U/L ALT 16 (14-59) U/L Alkaline Phosphatase 96 (46-116) U/L Troponin I 0.183 H* (0.00-0.056) ng/mL Total Protein 7.4 (6.4-8.2) g/dl Albumin 3.3 L (3.4-5.0) g/dl Globulin 4.1 gm/dL Albumin/Globulin Ratio 0.8 L (1-2) TSH 3rd Generation 1.155 (0.358-3.74) uIU/mL Med Orders - Current: Current Medications Acetaminophen (Tylenol) 650 mg PO Q4H PRN PRN Reason: Pain (Mild 1-3)/fever Albuterol (Proventil Hfa) 0 gm INH Q4H PRN PRN Reason: Shortness of Breath Allopurinol (Zyloprim) 100 mg PO DAILY [facility] Last Admin: 05/03/20 08:30 Dose: 100 mg Documented by: Aspirin (Halfprin) 81 mg PO DAILY [facility] Last Admin: 05/03/20 08:30 Dose: 81 mg Documented by: Calcium Carbonate (Calcium Carbonate/Vitamin D 600 Mg-200 Unit) 1 tab PO BID [facility] Last Admin: 05/03/20 08:30 Dose: 1 tab Documented by: Calcium Carbonate/Glycine (Tums) 1,000 mg PO Q4HR PRN PRN Reason: Indigestion Last Admin: 05/03/20 11:13 Dose: 1,000 mg Documented by: Enoxaparin Sodium (Lovenox) 30 mg SUBCUT DAILY [facility] Last Admin: 05/03/20 08:29 Dose: 30 mg Documented by: Insulin Glargine (Lantus) 20 unit SUBCUT BIDAC [facility] Last Admin: 05/03/20 06:41 Dose: 20 units Documented by: Insulin Human Lispro (Humalog) 0 unit SUBCUT QIDACANDBED [facility]; Protocol Last Admin: 05/03/20 13:10 Dose: Not Given Documented by: Insulin Human Lispro (Humalog) 7 unit SUBCUT TIDAC [facility] Last Admin: 05/03/20 13:21 Dose: Not Given Documented by: Latanoprost (Xalatan 0.005% Ophth Soln) 0 ml EYEBOTH BEDTIME [facility] Last Admin: 05/02/20 21:08 Dose: 1 drop Documented by: Lisinopril (Prinivil) 5 mg PO DAILY [facility] Last Admin: 05/03/20 08:31 Dose: 5 mg Documented by: Metoprolol Succinate (Toprol Xl) 50 mg PO DAILY [facility] Last Admin: 05/03/20 11:51 Dose: 50 mg Documented by: Montelukast Sodium (Singulair) 10 mg PO BEDTIME PRN PRN Reason: Allergies Nitroglycerin (Nitrostat) 0.4 mg SL Q5M PRN PRN Reason: Chest Pain Nitroglycerin (Nitrostat) 0.4 mg SL ASDIRECTED PRN PRN Reason: Chest Pain Nystatin (Nystop) 0 gm TOP BID [facility] Last Admin: 05/03/20 08:29 Dose: 1 applic Documented by: Ondansetron HCl (Zofran) 4 mg IV Q4H PRN PRN Reason: Nausea/Vomiting Simvastatin (Zocor) 20 mg PO BEDTIME [facility] Last Admin: 05/02/20 21:07 Dose: 20 mg Documented by: Sodium Bicarbonate (Sodium Bicarbonate) 650 mg PO DAILY [facility] Last Admin: 05/03/20 08:30 Dose: 650 mg Documented by: Torsemide (Demadex) 40 mg PO DAILY [facility] Last Admin: 05/03/20 08:31 Dose: 40 mg Documented by: Discontinued Medications Adenosine (Adenocard) Confirm Administered Dose 6 mg .ROUTE .STK-MED ONE Stop: 05/03/20 10:45 Last Admin: 05/03/20 11:40 Dose: 6 mg Documented by: Adenosine (Adenocard) Confirm Administered Dose 12 mg .ROUTE .STK-MED ONE Stop: 05/03/20 10:45 Last Admin: 05/03/20 10:49 Dose: 6 mg Documented by: Metoprolol Tartrate 5 mg/ (Sodium Chloride) 55 mls @ 100 mls/hr IV ONETIME ONE Stop: 05/03/20 13:38 Last Admin: 05/03/20 13:13 Dose: Not Given Documented by: Sodium Chloride (Normal Saline) 500 mls @ 500 mls/hr IV .BOLUS ONE Stop: 05/03/20 14:11 Last Admin: 05/03/20 13:20 Dose: 500 mls/hr Documented by: Sodium Chloride (Normal Saline) Confirm Administered Dose 1,000 mls @ as directed .ROUTE .STK-MED ONE Stop: 05/03/20 13:17 Last Admin: 05/03/20 13:20 Dose: Not Given Documented by: Lorazepam (Ativan) 0.5 mg IVPUSH ONETIME ONE Stop: 05/03/20 13:31 Last Admin: 05/03/20 13:37 Dose: 0.5 mg Documented by: Metoprolol Tartrate (Lopressor) Confirm Administered Dose 5 mg .ROUTE .STK-MED ONE Stop: 05/03/20 11:24 Last Admin: 05/03/20 11:40 Dose: 5 mg Documented by: Metoprolol Tartrate (Lopressor) Confirm Administered Dose 5 mg .ROUTE .STK-MED ONE Stop: 05/03/20 11:36 Last Admin: 05/03/20 11:24 Dose: 5 mg Documented by: Metoprolol Tartrate (Lopressor) Confirm Administered Dose 10 mg .ROUTE .STK-MED ONE Stop: 05/03/20 11:46 Last Admin: 05/03/20 13:26 Dose: Not Given Documented by: Metoprolol Tartrate (Lopressor) 5 mg IV ONETIME ONE Stop: 05/03/20 13:31 Last Admin: 05/03/20 13:20 Dose: 5 mg Documented by:
== END 2020-05-03 14:45 | DRG 281 ==
LOC: JD.ED 02:36 → JD.MS 06:53 → JD.ICU 05-03 11:49
PROVIDERS: ADMIT Family Medicine; ATTEND Family Medicine
DX: I21.4 Non-ST elevation (NSTEMI) myocardial infarction (principal); I47.1 Supraventricular tachycardia; N18.4 Chronic kidney disease, stage 4 (severe); I13.0 Hypertensive heart and chronic kidney disease with heart failure and stage 1 through stage 4 chronic kidney disease, or unspecified chronic kidney disease; E11.9 Type 2 diabetes mellitus without complications; Z86.718 Personal history of other venous thrombosis and embolism; I21.A1 Myocardial infarction type 2; I25.9 Chronic ischemic heart disease, unspecified; E11.22 Type 2 diabetes mellitus with diabetic chronic kidney disease; Z66 Do not resuscitate; I50.9 Heart failure, unspecified; E11.21 Type 2 diabetes mellitus with diabetic nephropathy; H54.7 Unspecified visual loss; Z20.822 Contact with and (suspected) exposure to COVID-19; E78.00 Pure hypercholesterolemia, unspecified; J44.9 Chronic obstructive pulmonary disease, unspecified; K59.09 Other constipation; Z95.4 Presence of other heart-valve replacement; K21.9 Gastro-esophageal reflux disease without esophagitis; K44.9 Diaphragmatic hernia without obstruction or gangrene; R32 Unspecified urinary incontinence; M81.0 Age-related osteoporosis without current pathological fracture; D64.9 Anemia, unspecified; E53.8 Deficiency of other specified B group vitamins; Z98.49 Cataract extraction status, unspecified eye; Z79.899 Other long term (current) drug therapy; Z79.82 Long term (current) use of aspirin; Z79.4 Long term (current) use of insulin; Z95.5 Presence of coronary angioplasty implant and graft; Z87.891 Personal history of nicotine dependence
CPT/HCPCS: 31500; 36415; 51702; 80053; 82962; 83735; 84443; 84484; 85025; 93005; 93010; 99223; 99239; 99285; 99285-25; A9270-GY; J0153; J1650; J1815-GY; J2060; J3490; J7030; U0002

== ENCOUNTER 2020-05-13 15:58 | Emergency (ER) | payer OTHER ==
--- NOTE | 2020-05-13 17:08 | EDM.PDOC ---
ED HPI GENERAL MEDICAL PROBLEM - General Chief Complaint: Cardiovascular Problem Stated Complaint: IRREGULAR HEART RATE Time Seen by Provider: 05/13/20 17:01 Source of Information: Reports: Patient History Limitations: Reports: No Limitations - History of Present Illness INITIAL COMMENTS - FREE TEXT/NARRATIVE: 85-year-old female presents to the ED with apparent irregular heartbeat that she became aware of early this afternoon. Apparently patient nurse came and checked her and she was having a combination of bradycardia and tachycardia reported heart rate from 40 to 120 bpm. Patient underwent a cardiac ablation procedure by Dr. Sherman medical concierge at [facility] in [place] 6 days ago. She stayed in hospital until May 09 when she was discharged. Her metoprolol dose has been changed to 25 mg twice daily from 50 mg succinate once daily. She denies any dyspnea or increased shortness of breath. She takes torsemide 40 mg every morning as instructed to take a 20 mg dose in the afternoon if she gains any weight i.e. more than a pound per day. She reports that she has not taken an extra dose of torsemide for about a month. She denies any chest pain. Perhaps mildly dizzy when her heart was beating irregular. The pace nurse apparently checked her and felt her heart rate was anywhere between 30 and 200 bpm. Onset: Today, Sudden Onset Date: 05/13/20 Onset Time: 14:00 Duration: Hour(s):, Improving (Is better now than she did earlier this afternoon. Not aware of any irregular heartbeats at this time. However the monitor shows that she does dip down to a bradycardia as low as 42/min at times. Blood pressure is normal at 144/64.) Location: Reports: Chest (Feels her heart beating irregularly intermittently.) Quality: Reports: Other (Mildly dizzy.) Severity: Mild Improves with: Reports: None Worsens with: Reports: None Context: Denies: Activity, Exercise, Lifting, Sick Contact, Trauma, Other Associated Symptoms: Reports: Shortness of Breath. 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 (see below) - Related Data Allergies Allergy/AdvReac Type Severity Reaction Status Date / Time No Known Allergies Allergy Verified 05/13/20 16:46 Home Meds: Home Meds Acetaminophen 325 mg PO BID 11/16/18 [History] Acetaminophen 650 mg PO Q4H PRN 11/16/18 [History] Albuterol [Ventolin HFA] 2 puff INH Q4H PRN 11/16/18 [History] Aspirin [Ecotrin EC] 81 mg PO DAILY 11/16/18 [History] Calcium Carbonate/Vitamin D3 [Calcium 600-Vit D3 400 Tablet] 1 tab PO BID 11/16/18 [History] Insulin Glargine,Hum.Rec.Anlog [Basaglar Kwikpen U-100] 25 units SUBCUT BID 11/16/18 [History] Magnesium Oxide 400 mg PO TID 11/16/18 [History] Pantoprazole Sodium [Protonix] 20 mg PO Q48H 11/16/18 [History] atorvaSTATin [Lipitor] 20 mg PO BEDTIME 11/16/18 [History] lisinopriL [Lisinopril] 5 mg PO DAILY 11/16/18 [History] Allopurinol [Zyloprim] 100 mg PO DAILY 09/03/19 [History] Insulin Lispro [Admelog] 10 unit SUBCUT TID 09/03/19 [History] Loperamide [Imodium] 2 mg PO TID PRN 09/03/19 [History] Nitroglycerin 0.4 mg SL ASDIRECTED PRN 09/03/19 [History] Trolamine Salicylate/Aloe Vera [Aspercreme 10% Cream] 1 applic TOP QID PRN 09/03/19 [History] Iodine/Isopropyl Alcohol [Iodine Tincture 1%-70% Amber] 1 applic TOP QID PRN 04/27/20 [History] Latanoprost 1 drop EYEBOTH BEDTIME 04/27/20 [History] Metoprolol Succinate 25 mg PO BID 04/27/20 [History] Montelukast [Singulair] 10 mg PO BEDTIME PRN 04/27/20 [History] Ondansetron [Zofran ODT] 4 mg SL Q6H PRN 04/27/20 [History] Semaglutide [Ozempic] 1 injection SUBCUT MO 04/27/20 [History] Torsemide 40 mg PO DAILY PRN 04/27/20 [History] Vit A/Vit C/Vit E/Zinc/Copper [Preservision] 1 tab PO BID 04/27/20 [History] calcitrioL [Calcitriol] 1 tab PO MOFR 04/27/20 [History] Past Medical History HEENT History: Reports: Macular Degeneration Other HEENT History: reading glasses as needed. Legally blind Cardiovascular History: Reports: Blood Clots/VTE/DVT, Heart Failure, High Cho lesterol, Other (See Below) Other Cardiovascular History: artificial aorta. SVT Respiratory History: Reports: Asthma, COPD, Pneumonia, Recurrent Gastrointestinal History: Reports: Chronic Constipation, GERD, Hiatal Hernia, PUD Other Gastrointestinal History: lymphocytic colitis Genitourinary History: Reports: Chronic Renal Insuffiency, Urinary Incontinence Other Genitourinary History: atrophy of kidney (terminal). chronic kidney disease stage 4 Musculoskeletal History: Reports: Gout, Osteoporosis Other Musculoskeletal History: low back pain. Other Neuro History: Restless leg syndrome Psychiatric History: Reports: Depression Endocrine/Metabolic History: Reports: Diabetes, Type II, Hypokalemia, Hypomagnesemia, Obesity/BMI 30+, Osteoporosis Other Endocrine/Metabolic History: hyperkalemia Hematologic History: Reports: Anemia, B12 Deficiency, Iron Deficiency Other Dermatologic History: seborrheic keratosis - Infectious Disease History Infectious Disease History: Reports: Influenza - Past Surgical History HEENT Surgical History: Reports: Cataract Surgery Other Cardiovascular Surgeries/Procedures: heart-valve placement. coronary brielle oplasty implant and graft. nonrheumatic aortic valve stenosis Social & Family History - Caffeine Use Caffeine Use: Reports: Coffee Other Caffeine Use: occassionally - Living Situation & Occupation Living situation: Reports: Single Occupation: Retired [employer] - Review of Systems Review Of Systems: See Below Constitutional: Reports: Fatigue. Denies: Fever, Chills, Malaise, Weakness, Decreased Appetite, Weight Loss HEENT: Reports: Glasses, Other (Had previous cataract surgery and intraocular lens implants bilaterally.) Respiratory: Reports: Shortness of Breath, Wheezing. 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 He reports that she was under anesthesia for 6 hours.), Other (History of congestive failure.). Denies: Chest Pain, Claudication (Chronic hypertension) Endocrine: Reports: No Symptoms GI/Abdominal: Reports: Constipation (Vaginal) : Reports: Frequency, Incontinence, Other (Renal insufficiency. Recently started on sodium bicarb tabs to ameliorate some of her renal induced acidosis) Musculoskeletal: Reports: Back Pain (Stress and urge components.), Joint Pain (Patient has had bilateral knee replacements. Has arthritic change in both hips. Intermittent neck and shoulder pain.) Skin: Reports: Bruising (Currently she has marked ecchymoses lower abdominal wall and right inguinal area where she underwent cardiac ablation procedure 6 days ago. Abdominal bruising secondary to Lovenox injections.) Neurological: Reports: No Symptoms Psychiatric: Reports: No Symptoms Hematologic/Lymphatic: Reports: No Symptoms Immunologic: Reports: No Symptoms ED EXAM, GENERAL - Physical Exam Exam: See Below Exam Limited By: No Limitations General Appearance: Alert, WD/WN, No Apparent Distress, Other (Temperature is 36.5 degrees. Heart rate 60 and sinus. Respiratory 20 with O2 sats of 95% on room air. BP 158/54 and came down to 144/64.) Eye Exam: Bilateral Eye: Normal Inspection (Evidence of previous cataract extraction and intraocular lens implants.), PERRL Throat/Mouth: Normal Inspection, Normal Lips, Normal Oropharynx Head: Atraumatic, Normocephalic Neck: Normal Inspection, Supple, Non-Tender, Full Range of Motion. No: Carotid Bruit, Lymphadenopathy (L), Lymphadenopathy (R) Respiratory/Chest: No Respiratory Distress, Lungs Clear, Normal Breath Sounds, No Accessory Muscle Use. No: Rales, Rhonchi, Wheezing Cardiovascular: No Gallop, No Murmur, No Rub, Irregularly Irregular (Heart rate varies substantially on examination anywhere from 46 to 70/min.). No: Normal Peripheral Pulses, Regular Rate, Rhythm, No Edema Peripheral Pulses: 1+: Posterior Tibial (L), Posterior Tibial (R), Dorsalis Pedis (L), Dorsalis Pedis (R), 2+: Carotid (L), Carotid (R) GI/Abdominal: Normal Bowel Sounds, Soft, Non-Tender, No Organomegaly, Pelvis Stable, Other (Patient has a very tender lower abdomen at recent's of Lovenox injection with marked ecchymoses particular left lower quadrant of the abdomen. There is bruising also in the right inguinal area from recent cardiac ablation procedure 6 days ago.) Back Exam: Normal Inspection, Full Range of Motion, Other (Increased lordotic curvature lumbar spine.). No: CVA Tenderness (L), CVA Tenderness (R) Extremities: Pedal Edema Neurological: Alert (Suresh pedal edema bilaterally graded as 1 out of 4.), Oriented, CN II-XII Intact, Normal Cognition Psychiatric: Normal Affect, Normal Mood Skin Exam: Warm, Dry, Intact, Ecchymosis (Abdominal wall and right inguinal area at site of recent cardiac ablation procedure. Abdominal wall ecchymoses secondary to Lovenox injections) #1 Interpretation EKG Date: 05/13/20 Time: 17:20 Rhythm: NSR Rate (Beats/Min): 63 [place]: Normal P-Wave: Present QRS: Other (Degree AV block) ST-T: Other (T wave flattening leads I and aVL, V1 and V2 nonspecific finding) QT: Normal EKG Interpretation Comments: Borderline ECG Course - Vital Signs Last Recorded V/S: Last Vital Signs Temp 36.5 C 05/13/20 16:58 Pulse 60 05/13/20 16:58 Resp 20 05/13/20 16:58 BP 158/54 H 05/13/20 16:58 Pulse Ox - Orders/Labs/Meds Labs: Laboratory Tests 05/13/20 05/13/20 05/13/20 Range/Units 17:21 17:21 17:21 WBC 9.46 (3.98-10.04) K/mm3 RBC 3.21 L (3.98-5.22) M/mm3 Hgb 10.1 L (11.2-15.7) gm/dl Hct 33.7 L (34.1-44.9) % MCV 105.0 H (79.4-94.8) fl MCH 31.5 (25.6-32.2) pg MCHC 30.0 L (32.2-35.5) g/dl RDW Std Deviation 58.7 H (36.4-46.3) fL Plt Count 234 (182-369) K/mm3 MPV 11.2 (9.4-12.3) fl Neut % (Auto) 61.4 (34.0-71.1) % Lymph % (Auto) 24.3 (19.3-51.7) % Barton % (Auto) 9.2 (4.7-12.5) % Eos % (Auto) 4.5 (0.7-5.8) Baso % (Auto) 0.4 (0.1-1.2) % Neut # (Auto) 5.80 (1.56-6.13) K/mm3 Lymph # (Auto) 2.30 (1.18-3.74) K/mm3 Barton # (Auto) 0.87 H (0.24-0.36) K/mm3 Eos # (Auto) 0.43 H (0.04-0.36) K/mm3 Baso # (Auto) 0.04 (0.01-0.08) K/mm3 PT 10.6 (9.7-12.0) SECONDS INR 0.99 APTT 22.3 (21.7-31.4) SECONDS Sodium 149 H (136-145) mEq/L Potassium 3.9 (3.5-5.1) mEq/L Chloride 111 H (98-107) mEq/L Carbon Dioxide 27 (21-32) mEq/L Anion Gap 14.9 (5-15) BUN 32 H (7-18) mg/dL Creatinine 2.3 H (0.55-1.02) mg/dL Est Cr Clr Drug Dosing 14.66 mL/min Estimated GFR (MDRD) 20 (>60) mL/min BUN/Creatinine Ratio 13.9 L (14-18) Glucose 123 H (83-115) mg/dL Calcium 9.1 (8.5-10.1) mg/dL Magnesium 2.1 (1.8-2.4) mg/dl Total Bilirubin 0.3 (0.2-1.0) mg/dL AST 13 L (15-37) U/L ALT 16 (14-59) U/L Alkaline Phosphatase 88 (46-116) U/L CK-MB (CK-2) 0.6 (0-3.6) ng/ml Troponin I 0.126 H* (0.00-0.056) ng/mL C-Reactive Protein 0.5 (<1.0) mg/dL NT-Pro-B Natriuret Pep (0-450) pg/mL Total Protein 6.6 (6.4-8.2) g/dl Albumin 3.0 L (3.4-5.0) g/dl Globulin 3.6 gm/dL Albumin/Globulin Ratio 0.8 L (1-2) 05/13/20 Range/Units 17:21 WBC (3.98-10.04) K/mm3 RBC (3.98-5.22) M/mm3 Hgb (11.2-15.7) gm/dl Hct (34.1-44.9) % MCV (79.4-94.8) fl MCH (25.6-32.2) pg MCHC (32.2-35.5) g/dl RDW Std Deviation (36.4-46.3) fL Plt Count (182-369) K/mm3 MPV (9.4-12.3) fl Neut % (Auto) (34.0-71.1) % Lymph % (Auto) (19.3-51.7) % Barton % (Auto) (4.7-12.5) % Eos % (Auto) (0.7-5.8) Baso % (Auto) (0.1-1.2) % Neut # (Auto) (1.56-6.13) K/mm3 Lymph # (Auto) (1.18-3.74) K/mm3 Barton # (Auto) (0.24-0.36) K/mm3 Eos # (Auto) (0.04-0.36) K/mm3 Baso # (Auto) (0.01-0.08) K/mm3 PT (9.7-12.0) SECONDS INR APTT (21.7-31.4) SECONDS Sodium (136-145) mEq/L Potassium (3.5-5.1) mEq/L Chloride (98-107) mEq/L Carbon Dioxide (21-32) mEq/L Anion Gap (5-15) BUN (7-18) mg/dL Creatinine (0.55-1.02) mg/dL Est Cr Clr Drug Dosing mL/min Estimated GFR (MDRD) (>60) mL/min BUN/Creatinine Ratio (14-18) Glucose (83-115) mg/dL Calcium (8.5-10.1) mg/dL Magnesium (1.8-2.4) mg/dl Total Bilirubin (0.2-1.0) mg/dL AST (15-37) U/L ALT (14-59) U/L Alkaline Phosphatase (46-116) U/L CK-MB (CK-2) (0-3.6) ng/ml Troponin I (0.00-0.056) ng/mL C-Reactive Protein (<1.0) mg/dL NT-Pro-B Natriuret Pep 1010 H (0-450) pg/mL Total Protein (6.4-8.2) g/dl Albumin (3.4-5.0) g/dl Globulin gm/dL Albumin/Globulin Ratio (1-2) Meds: Medications Discontinued Medications Generic Name Dose Route Start Last Admin Trade Name Freq PRN Reason Stop Dose Admin Sodium Chloride 10 ml 05/13/20 17:23 Saline Flush FLUSH ASDIRECTED PRN Keep Vein Open - Radiology Interpretation Free Text/Narrative:: 85-year-old female presents to the ED for evaluation of a regular irregular heartbeat. Case nurse checked her today and found a heart rate anywhere from 40 to 120 bpm. Patient has symptoms of tachybradycardia syndrome primarily that of tachycardia. She has been having irregular heartbeats off and on since summer 2019. 6 days ago on May 06, 2019 she underwent cardiac ablation procedure that was prolonged ie. 6 hours at in [place] under the care of Dr. Sherman. She was hospitalized until May 09 when she was discharged. She has a history of renal insufficiency and chronic congestive heart failure. She reports dosage of metoprolol was changed from a 50 mg met oprolol succinate to a 25 mg metoprolol tartrate twice daily. Her only symptoms today were apparently mild lightheadedness. Pace nurse checked her at home and identified heart rate of as low as in the 30s to greater than 150. Heart rate in the emergency room has been primarily bradycardia anywhere from 46/min to as high as 68/min. Patient is asymptomatic at the time of examination clear lung f ields no evidence of congestive heart failure JVD. Plan saline lock. ECG. Portable chest x-ray. Routine labs including serum magnesium and BNP. - Re-Assessments/Exams Free Text/Narrative Re-Assessment/Exam: 05/13/20 17:44 Hematology reveals a normal white count at 9.46. Differential is 61% neutrophils. Hemoglobin is slightly low at 10.1. Patient is known to have renal insufficiency. Hematocrit is 33.7. MCV is elevated at 105.0 compatable with renal insufficiency. Platelet count is normal at 234,000. PT is 10.6 with an INR of 0.99. PTT is 22.3 Chest x-ray reveals moderate cardiomegaly. Visualized lung somers are clear. Evidence of previous cardiac surgery with suspect endovascular thoracic aortic graft. 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 05/13/20 18:50 Sodium is elevated at 149. Potassium is 3.9 with a chloride of 111. Bicarb is 27. Anion gap is 14.9 with a BUN of 32 and a creatinine of 2.3. GFR is 20 i.e. severe stage IV renal insufficiency. Glucose is 123. Of note the patient is an insulin-dependent type type II diabetic. Calcium is 9.1 with a magnesium of 2.1. Bilirubin is 0.3. AST is 13 with an ALT of 16 and alk phosphatase normal at 88. Troponin I is elevated at 0.126. I expect it remains elevated for potential length of time after having an ablation procedure. C-reactive protein is 0.5 BNP is 1010. Total protein 6.6 with an albumin fraction of 3.0. 05/13/20 19:00: Discussed the results of her lab tests with Dr. Díaz on-call medical concierge at [facility] in [place]. He does not feel that her elevated troponin of any concern. Concern is of course that she may have not had a satisfactory ablation procedure due to recurrence of tachycardia. This was not documented in the ER however. Her heart rate here is between 40 and 64/min. At this point time we elected not to change her metoprolol dose however she remained bradycardic of course this would certainly be indicated. The problem is she is having breakthrough tachycardia the metoprolol is helping to bring it under control. Patient is anxious to go back home and therefore she will be discharged under the care of PACE nurse. At this time no changes to medications are to be made. Dr. Engle will discuss the findings with Dr. Sherman--who performed the EP studies and ablation last week. 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 insulin use: with fpc use Diabetes mellitus complication status: with kidney complications Diabetes mellitus complication detail: with microalbuminuria Qualified Code(s): E11.29 - Type 2 diabetes greta itus with other diabetic kidney complication Instructions: Supraventricular Tachycardia, Adult, [id number], Hypernatremia, [id number], Chronic Kidney Disease, Adult, Type 2 Diabetes Mellitus, Diagnosis, Adult, [id number] Referrals: Oma Olea NP [Primary Care Provider] - Forms: ED Department Discharge Additional Instructions: Evaluation in the emergency room today in regards to awakening from sleep with feeling of heart racing in her chest. You are having a nap and awoke with a rapid heart rate characteristic of what you have been experiencing off and on since August of last year. Pace nurse identified heart rate to be as high as 120 and is low was 40/min. Constant monitoring in the emergency room revealed heart rate at the highest was 68/min and is low as 42/min. Average heart rate was around 61/min. Blood pressure is maintained at 134/49. At this time after maru sam with cardiology services at [facility] in [place] no changes in medication are recommended. Your case will be discussed with Dr. Sherman tomorrow morning by Dr. Interiano cardiology services. He will likely give you a call tomorrow to check on you. If you have any further similar problems with racing heart you are to return to the emergency room.
[2020-05-13] MEDS ORDERED: Sodium Chloride 0.9% 10 ML Syringe FLUSH PRN (17:23)
--- NOTE | 2020-05-14 08:49 | CR ---
Chest: Portable view of the chest was obtained. Comparison: Prior chest x-ray of 04/27/20 and 09/03/19. Heart is felt to be slightly enlarged. Aortic stent is noted. Lungs are clear with no acute parenchymal change. No acute osseous finding is seen. Impression: 1. Heart size is slightly enlarged which represents a mild interval change from prior study. 2. Prior aortic stent. 3. Nothing acute is appreciated. Diagnostic code #3
== END 2020-05-13 20:03 | disposition home or self-care (01) ==
LOC: JD.ED 15:58
DX: I47.1 Supraventricular tachycardia (principal); E11.22 Type 2 diabetes mellitus with diabetic chronic kidney disease; N18.4 Chronic kidney disease, stage 4 (severe); E87.0 Hyperosmolality and hypernatremia; S30.1XXA Contusion of abdominal wall, initial encounter; I50.9 Heart failure, unspecified; E78.00 Pure hypercholesterolemia, unspecified; J44.9 Chronic obstructive pulmonary disease, unspecified; K21.9 Gastro-esophageal reflux disease without esophagitis; I44.30 Unspecified atrioventricular block; Z79.899 Other long term (current) drug therapy; Z79.82 Long term (current) use of aspirin; Z79.4 Long term (current) use of insulin
CPT/HCPCS: 36415; 71045; 71045-26; 80053; 82553; 83735; 83880; 84484; 85025; 85610; 85730; 86140; 93005; 93010; 99285; 99285-25

== ENCOUNTER 2020-06-27 18:06 | Emergency (ER) | payer MEDICAID, OTHER ==
[2020-06-27] MEDS ORDERED: Aspirin 81 MG Tab.Chew PO ONE (18:28)
[2020-06-27] MEDS ORDERED: Sodium Chloride 0.9% 10 ML Syringe FLUSH PRN (18:28)
--- NOTE | 2020-06-27 19:05 | EDM.PDOC ---
<Aldo Cloud - Last Filed: 06/27/20 19:29> ED HPI GENERAL MEDICAL PROBLEM - General Chief Complaint: Chest Pain Stated Complaint: [facility] Time Seen by Provider: 06/27/20 18:21 Source of Information: Reports: Patient, EMS History Limitations: Reports: No Limitations - History of Present Illness INITIAL COMMENTS - FREE TEXT/NARRATIVE: The patient presents by [facility] for chest pain. She said this pain started just after eating. She denies any shortness of breath. She has a history of SVT in the past. She recently had an ablation over a month ago. She has no fever, chills, cough, abdominal, nausea or vomiting. She says she is extremely exhausted. She has been cooking for multiple people over the past few days. She has no history of NM as far as she knows. The pain is gone now. She did take a baby aspirin this morning. 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 Onset: Sudden Duration: Hour(s): Location: Reports: Chest Quality: Reports: Pressure Severity: Mild Improves with: Reports: None Worsens with: Reports: None Associated Symptoms: Reports: Chest Pain. Denies: Cough, Fever/Chills, Headach es, Nausea/Vomiting, Shortness of Breath Right Chest Pain Score (Numeric/FACES): 5 - Related Data Allergies Allergy/AdvReac Type Severity Reaction Status Date / Time No Known Allergies Allergy Verified 06/27/20 18:17 Home Meds: Home Meds Acetaminophen 325 mg PO BID 11/16/18 [History] Acetaminophen 650 mg PO Q4HR PRN 11/16/18 [History] Albuterol [Ventolin HFA] 2 puff INH Q4H PRN 11/16/18 [History] Aspirin [Ecotrin EC] 81 mg PO DAILY 11/16/18 [History] Calcium Carbonate/Vitamin D3 [Calcium 600-Vit D3 400 Tablet] 1 tab PO BID 11/16/18 [History] Insulin Glargine,Hum.Rec.Anlog [Basaglar Kwikpen U-100] 25 units SUBCUT BID 11/16/18 [History] Magnesium Oxide 400 mg PO TID 11/16/18 [History] Pantoprazole Sodium [Protonix] 20 mg PO Q48H 11/16/18 [History] atorvaSTATin [Lipitor] 20 mg PO BEDTIME 11/16/18 [History] lisinopriL [Lisinopril] 5 mg PO DAILY 11/16/18 [History] Allopurinol [Zyloprim] 100 mg PO DAILY 09/03/19 [History] Insulin Lispro [Admelog] 10 unit SUBCUT TID 09/03/19 [History] Loperamide [Imodium] 2 mg PO TID PRN 09/03/19 [History] Nitroglycerin 0.4 mg SL ASDIRECTED PRN 09/03/19 [History] Trolamine Salicylate/Aloe Vera [Aspercreme 10% Cream] 1 applic TOP QID PRN 09/03/19 [History] Iodine/Isopropyl Alcohol [Iodine Tincture 1%-70% Amber] 1 applic TOP QID PRN 04/27/20 [History] Latanoprost 1 drop EYEBOTH BEDTIME 04/27/20 [History] Metoprolol Succinate 25 mg PO BID 04/27/20 [History] Montelukast [Singulair] 10 mg PO BEDTIME PRN 04/27/20 [History] Ondansetron [Zofran ODT] 4 mg SL Q6H PRN 04/27/20 [History] Semaglutide [Ozempic] 1 injection SUBCUT MO 04/27/20 [History] Torsemide 40 mg PO DAILY PRN 04/27/20 [History] Vit A/Vit C/Vit E/Zinc/Copper [Preservision] 1 tab PO BID 04/27/20 [History] calcitrioL [Calcitriol] 1 tab PO MOFR 04/27/20 [History] Past Medical History HEENT History: Reports: Macular Degeneration Other HEENT History: reading glasses as needed. Legally blind Cardiovascular History: Reports: Blood Clots/VTE/DVT, Heart Failure, High Cholesterol, Other (See Below) Other Cardiovascular History: artificial aorta. SVT Respiratory History: Reports: Asthma, COPD, Pneumonia, Recurrent Gastrointestinal History: Reports: Chronic Constipation, GERD, Hiatal Hernia, PUD Other Gastrointestinal History: lymphocytic colitis Genitourinary History: Reports: Chronic Renal Insuffiency, Urinary Incontinence Other Genitourinary History: atrophy of kidney (terminal). chronic kidney disease stage 4 Musculoskeletal History: Reports: Gout, Osteoporosis Other Musculoskeletal History: low back pain. Other Neuro History: Restless leg syndrome Psychiatric History: Reports: Depression Endocrine/Metabolic History: Reports: Diabetes, Type II, Hypokalemia, Hypomagnesemia, Obesity/BMI 30+, Osteoporosis Other Endocrine/Metabolic History: hyperkalemia Hematologic History: Reports: Anemia, B12 Deficiency, Iron Deficiency Oncologic (Cancer) History: Reports: None Other Dermatologic History: seborrheic keratosis - Infectious Disease History Infectious Disease History: Reports: Influenza - Past Surgical History HEENT Surgical History: Reports: Cataract Surgery Other Cardiovascular Surgeries/Procedures: heart-valve placement. coronary angioplasty implant and graft. nonrheumatic aortic valve stenosis GI Surgical History: Reports: Other (See Below) Other GI Surgeries/Procedures: A portion of bowel was removed. Musculoskeletal Surgical History: Reports: Knee Replacement Social & Family History - Family History Family Medical History: No Pertinent Family History - Tobacco Use Tobacco Use Status *Q: Former Tobacco User Used Tobacco, but Quit: Yes Month/Year Tobacco Last Used: 3 years ago - Caffeine Use Caffeine Use: Reports: Coffee Other Caffeine Use: occassionally - Recreational Drug Use Recreational Drug Use: No - Living Situation & Occupation Living situation: Reports: Single Occupation: Retired ED ROS GENERAL - Review of Systems Review Of Systems: See Below Constitutional: Reports: No Symptoms HEENT: Reports: No Symptoms Respiratory: Reports: No Symptoms Cardiovascular: Reports: Chest Pain Endocrine: Reports: No Symptoms GI/Abdominal: Reports: No Symptoms : Reports: No Symptoms Musculoskeletal: Reports: No Symptoms ED EXAM, GENERAL - Physical Exam Exam: See Below Exam Limited By: No Limitations General Appearance: Alert, No Apparent Distress Ears: Normal External Exam Nose: Normal Inspection Throat/Mouth: Normal Inspection Respiratory/Chest: No Respiratory Distress, Lungs Clear, Normal Breath Sounds Cardiovascular: Regular Rate, Rhythm, No Edema, No Murmur GI/Abdominal: Soft, Non-Tender, No Organomegaly, No Mass Back Exam: Normal Inspection Extremities: Normal Inspection #1 Interpretation EKG Date: 06/27/20 Time: 18:10 Rhythm: NSR Rate (Beats/Min): 64 Morrow: Normal P-Wave: Present QRS: Normal ST-T: Normal QT: Normal EKG Interpretation Comments: PAC Course - Re-Assessments/Exams Free Text/Narrative Re-Assessment/Exam: 06/27/20 19:05 I ordered an IV saline lock, aspirin 324mg PO, EKG, CXR and labs. Her EKG shows a NSR with no acute changes. 06/27/20 19:31 Her CXR shows nothing acute. Her WBC was elevated at 14.11. He Hgb was low 10.2. Her anion gap is elevated at 16.6. Her creatinine is elevated at 2.5. Her baseline appears to be around 2.3. Her glucose is 131. Her troponin is negative. She denies any fever, cough, or dysuria. She does not have a gallbladder and she has no abdominal pain. I am not sure why her WBC is elevated at 14.11. I talked to her about this and she recalls that in the past she has had an elevated WBC before. It appears she has been not this high and at times she was normal. I feel she needs some fluids. I will give her a 500ml bolus and repeat her troponin and EKG in about 1 and a half hours. It is change of shift. Dr Rios to take over. Departure - Departure Disposition: Home, Self-Care 01 Clinical Impression: Chest pain of uncertain etiology, Chronic renal insufficiency Referrals: Oma Pascal NP [Primary Care Provider] - Forms: ED Department Discharge Additional Instructions: You were seen in the emergency room after developing chest pain after eating. Work-up in the ER included numerous blood tests, a chest x-ray, and 2 ECGs. Your work-up confirmed that you have chronic renal insufficiency, otherwise, your work-up was unremarkable. You have not suffered a heart attack. You do not have pneumonia. You do not have a collapsed lung. The exact cause of your chest pain is not clear, however, it does not appear to be due to something serious. We recommend that you follow-up with your PCP, Oma Pascal NP, at the next available appointment, for further evaluation. If any other problems, please do not hesitate to return to the ER. Sepsis Event Note (ED) - Evaluation Sepsis Screening Result: No Definite Risk <Odilon Rios - Last Filed: 06/27/20 22:31> #2 Interpretation EKG Date: 06/27/20 Time: 21:26 Rhythm: Other (Sinus bradycardia) Rate (Beats/Min): 58 Morrow: Normal P-Wave: Present (1st degree AVB) QRS: Normal ST-T: Normal QT: Normal Comparison: Change From Previous EKG (AVB new since 18:10) Course - Vital Signs Last Recorded V/S: Last Vital Signs Temp 36.4 C 06/27/20 18:14 Pulse 79 06/27/20 18:14 Resp 16 06/27/20 18:14 BP 121/62 06/27/20 18:14 Pulse Ox 97 06/27/20 18:14 - Orders/Labs/Meds Orders: Active Orders 24 hr Category Date Time Status Cardiac Monitoring [RC] . DIRECTED Care 06/27/20 18:28 Active EKG 12 Lead [EKG Documentation Completion] [RC] STAT Care 06/27/20 18:20 Active EKG Documentation Completion [RC] ASDIRECTED Care 06/27/20 21:20 Active Peripheral IV Care [RC] . DIRECTED Care 06/27/20 18:28 Active Chest 1V Frontal [CR] Stat Exams 06/27/20 18:28 Taken Sodium Chloride 0.9% [Saline Flush] Med 06/27/20 18:28 Active 10 ml FLUSH ASDIRECTED PRN Peripheral IV Insertion Adult [OM.PC] Stat Oth 06/27/20 18:28 Ordered EKG 12 Lead [EK] Stat Ther 06/27/20 21:20 Ordered Medication Orders Sodium Chloride (Sodium Chloride 0.9% 10 Ml Syringe) 10 ml FLUSH ASDIRECTED PRN PRN Reason: Keep Vein Open Last Admin: 06/27/20 18:37 Dose: 10 ml Documented by: ABILIO Labs: Laboratory Tests 06/27/20 06/27/20 06/27/20 Range/Units 18:47 18:47 21:20 WBC 14.11 H (3.98-10.04) K/mm3 RBC 3.20 L (3.98-5.22) M/mm3 Hgb 10.2 L (11.2-15.7) gm/dl Hct 33.6 L (34.1-44.9) % MCV 105.0 H (79.4-94.8) fl MCH 31.9 (25.6-32.2) pg MCHC 30.4 L (32.2-35.5) g/dl RDW Std Deviation 57.7 H (36.4-46.3) fL Plt Count 276 (182-369) K/mm3 MPV 11.6 (9.4-12.3) fl Neut % (Auto) 67.0 (34.0-71.1) % Lymph % (Auto) 21.3 (19.3-51.7) % Brooks % (Auto) 8.9 (4.7-12.5) % Eos % (Auto) 1.9 (0.7-5.8) Baso % (Auto) 0.5 (0.1-1.2) % Neut # (Auto) 9.45 H (1.56-6.13) K/mm3 Lymph # (Auto) 3.01 (1.18-3.74) K/mm3 Brooks # (Auto) 1.26 H (0.24-0.36) K/mm3 Eos # (Auto) 0.27 (0.04-0.36) K/mm3 Baso # (Auto) 0.07 (0.01-0.08) K/mm3 Manual Slide Review Abnormal smear Sodium 144 (136-145) mEq/L Potassium 4.6 (3.5-5.1) mEq/L Chloride 105 (98-107) mEq/L Carbon Dioxide 27 (21-32) mEq/L Anion Gap 16.6 H (5-15) BUN 39 H (7-18) mg/dL Creatinine 2.5 H (0.55-1.02) mg/dL Est Cr Clr Drug Dosing 13.49 mL/min Estimated GFR (MDRD) 18 (>60) mL/min BUN/Creatinine Ratio 15.6 (14-18) Glucose 131 H (83-115) mg/dL Calcium 9.2 (8.5-10.1) mg/dL Magnesium 2.2 (1.8-2.4) mg/dl Total Bilirubin 0.4 (0.2-1.0) mg/dL AST 12 L (15-37) U/L ALT 17 (14-59) U/L Alkaline Phosphatase 79 (46-116) U/L Troponin I 0.024 0.031 (0.00-0.056) ng/mL Total Protein 6.8 (6.4-8.2) g/dl Albumin 3.0 L (3.4-5.0) g/dl Globulin 3.8 gm/dL Albumin/Globulin Ratio 0.8 L (1-2) Meds: Medications Generic Name Dose Route Start Last Admin Trade Name Nicholas PRN Reason Stop Dose Admin Sodium Chloride 10 ml 06/27/20 18:28 06/27/20 18:37 Sodium Chloride 0.9% 10 Ml Syringe FLUSH 10 ml ASDIRECTED PRN Administration Keep Vein Open Discontinued Medications Generic Name Dose Route Start Last Admin Trade Name Nicholas PRN Reason Stop Dose Admin Aspirin 324 mg 06/27/20 18:28 06/27/20 18:36 Aspirin 81 Mg Tab.Chew PO 06/27/20 18:29 324 mg ONETIME ONE Administration Sodium Chloride 500 mls @ 1,000 mls/hr 06/27/20 19:27 06/27/20 19:42 Normal Saline IV 06/27/20 19:56 1,000 mls/hr .BOLUS ONE Administration - Re-Assessments/Exams Free Text/Narrative Re-Assessment/Exam: 06/27/20 21:[address] Cloud. I agree with his history and physical examination as documented. The repeat ECG shows no ischemic changes. 06/27/20 21:56 The patient's repeat troponin remains within normal limits at 0.031. 06/27/20 22:29 Test results discussed with the patient. As above, bret's work-up confirms her chronic renal insufficiency, otherwise, is unremarkable. I believe she is safe to discharge home and follow-up with her PCP. Departure - Departure Time of Disposition: 22:29 Condition: Good Sepsis Event Note (ED) - Focused Exam Vital Signs: Vital Signs Temp Pulse Resp BP Pulse Ox 06/27/20 18:14 36.4 C 79 16 121/62 97
[2020-06-27] MEDS ORDERED: Sodium Chloride 0.9% 500 ML IV ONE (19:27)
--- NOTE | 2020-06-28 09:43 | CR ---
Chest: Portable view of the chest was obtained. Comparison: Prior chest x-ray of 05/13/20. Aortic stent is noted. Heart size and mediastinum are within normal limits for portable technique. Lungs are clear with no acute parenchymal change. Bony structures are grossly intact. Impression: 1. Prior aortic surgery. 2. Nothing acute is seen on portable chest x-ray. Diagnostic code #2
== END 2020-06-27 22:51 | disposition home or self-care (01) ==
LOC: JD.ED 18:06
DX: R07.9 Chest pain, unspecified (principal); E11.22 Type 2 diabetes mellitus with diabetic chronic kidney disease; N18.4 Chronic kidney disease, stage 4 (severe); M10.9 Gout, unspecified; I50.9 Heart failure, unspecified; E78.00 Pure hypercholesterolemia, unspecified; J44.9 Chronic obstructive pulmonary disease, unspecified; K21.9 Gastro-esophageal reflux disease without esophagitis; E11.9 Type 2 diabetes mellitus without complications; E66.9 Obesity, unspecified; Z68.41 Body mass index [BMI] 40.0-44.9, adult; Z87.891 Personal history of nicotine dependence; Z79.82 Long term (current) use of aspirin; Z79.4 Long term (current) use of insulin; Z79.899 Other long term (current) drug therapy
CPT/HCPCS: 36415; 71045; 80053; 83735; 84484; 85025; 93005; 99285; A9270; J7030; 93010; 99284